=== PATIENT | female | born 1945 | race Caucasian/White ===

== ENCOUNTER 2016-12-15 12:38 | Inpatient (IN) | payer OTHER ==
[2016-12-15] MEDS ORDERED: NS 1,000 ML IV ONE (12:46)
[2016-12-15 13:07] LABS: MANUAL DIFF NEEDED? NO
[2016-12-15 13:24] LABS: BASO% 0.2 % (0.0-0.8); EOS# 0.03 X1000 (0.0-0.7); EOS% 0.2 % (0.0-10.0); HEMATOCRIT 40.8 % (37.0-47.0); HEMOGLOBIN 13.4 g/dL (12.0-16.0); IMM GRAN# 0.02 X1000 (0.0-0.04); IMM GRAN% 0.2 % (0.0-0.5); LYMPH# 1.36 X1000 (1.2-3.4); LYMPH% 10.3 % (20.5-51.1); MCH 29.3 PG (27-31); MCHC 32.8 g/dL (33-37); MCV 89.1 FL (81-99); MONO% 10.6 % (1.7-9.3); MPV 10.6 FL (7.4-10.4); NEUT% 78.5 % (42.2-75.2); PLT 277 X1000 (130-400); RBC 4.58 XMIL (4.2-5.4)
--- NOTE | 2016-12-15 13:33 | PROVIDER DOCUMENTATION ---
[id number] Abuse/Overdose - General Source: EMS Unable to obtain history due to:: urgency - History of Present Illness-Drug/Alcohol This episode of drinking or use began:: just prior to arrival Psychiatric Complaints: reports: ingestion Associated Symptoms: reports: vomiting Any injuries associated with this episode of intoxication?: No Similar Symptoms Previously?: No Recently seen or treated by another doctor?: No <Shantal Marlow - Last Filed: 12/15/16 16:17> <Morteza Stoddard I - Last Filed: 12/15/16 16:36> - General Chief Complaint: Overdose Stated Complaint: overdose Time Seen by Provider: 12/15/16 12:45 Allergies/Adverse Reactions: Allergies Allergy/AdvReac Type Severity Reaction Status Date / Time No Known Allergies Allergy Verified 02/04/16 08:16 Home Medications: Home Medication List Medication Instructions Recorded Confirmed Last Taken Type Hydrocodone/Acetaminophen 1 each PO TID PRN #0 09/04/13 02/04/16 02/02/16 08: 00 Rx [Hydrocodon-Acetaminophn 10-325] Oxybutynin Chloride [Oxybutynin 15 mg PO DAILY 02/14/14 02/04/16 02/02/16 08:00 History Chloride ER] Diltiazem HCl [Cardizem Cd] 360 mg PO DAILY 02/04/16 02/04/16 02/02/16 08:00 History Aspirin 81 mg PO DAILY #0 chewtab 02/06/16 Unknown Rx Gabapentin [Neurontin] 600 mg PO TID #0 tablet 02/06/16 Unknown Rx LOVAstatin [Mevacor] 20 mg PO WSUPPER #0 tablet 02/06/16 Unknown Rx Levofloxacin 750 mg PO DAILY #3 tablet 02/06/16 Unknown Rx Levothyroxine [Synthroid] 50 microgm PO DAILY #0 tablet 02/06/16 Unknown Rx Lorazepam [Ativan] 0.5 mg PO TID PRN PRN #0 tablet 02/06/16 Unknown Rx Losartan [Cozaar] 100 mg PO DAILY #0 tablet 02/06/16 Unknown Rx Omeprazole [Prilosec] 40 mg PO DAILY@0700 #0 capsule 02/06/16 Unknown Rx - History of Present Illness-Drug/Alcohol Nature of Presenting Problem: Pt is a 71 yof who came to the ED via EMS with a cc of possible overdose. Pt was found vomiting on her self and would respond to sternal rub. Pt has a hx of over dosing on her medication by accident. (Shantal Marlow) Review of Systems - Adult - REVIEW OF SYSTEMS - ADULT Constitutional: reports: chills, fever. denies: fatique, weight gain Eyes: reports: no symptoms reported Ears, Nose, Mouth & Throat: reports: no symptoms reported Cardiovascular: denies: heart murmur, orthopnea Respiratory: reports: no symptoms reported Gastrointestinal: reports: no symptoms reported Genitourinary: reports: no symptoms reported Musculoskeletal: reports: no symptoms reported Integumentary: reports: no symptoms reported Neurological: reports: no symptoms reported Psychiatric: reports: alcohol/drug dependence. denies: emotional problems, panic attacks Endocrine: reports: no symptoms reported Hematologic/Lymphatic: reports: no symptoms reported Allergic/Immunologic: reports: no symptoms reported All Other Systems: Reviewed and Negative <Shantal Marlow - Last Filed: 12/15/16 16:17> Past History - Adult - PAST MEDICAL HISTORY-ADULT Review of Records: reports: Old Records Reviewed, Nursing Assessment Review Major Childhood Illnesses: reports: denies history Cardiovascular: reports: HTN Respiratory: reports: denies history Gastrointestinal: reports: denies history Obstetrical/Gynecological: reports: denies history Genitourinary: reports: denies history Musculoskeletal: reports: denies history Neurological: reports: denies history Endocrine/Immune: reports: thyroid disorder (hypothyroid) Other Conditions: reports: denies history - PRIOR SURGERIES/PROCEDURES Surgical/Procedure History: reports: hysterectomy, back/neck - IMMUNIZATION STATUS Childhood Immunizations: See Nurse Assessment Flu Vaccine: See Nurse Assessment - FAMILY HISTORY Family History: reviewed, not pertinent <Shantal Marlow - Last Filed: 12/15/16 16:17> Physical Exam-General - PHYSICAL EXAM-ADULT Initial Vital Signs Reviewed: Yes - CONSTITUTIONAL General Appearance: lethargic - EYES Eyes: PERRL/EOMI, pink conjunctivae, fundi clear, no AV nicking - HEAD, EARS, NOSE, MOUTH & THROAT HENMT: moist mucous membranes, normal ENT inspection, TMs normal - RESPIRATORY Respiratory: chest non-tender - CARDIOVASCULAR Cardiovascular: tachycardia - SKIN Integumentary: warm/dry - PSYCHIATRIC Psych/Mental Status: disoriented x 3 <Shantal Marlow - Last Filed: 12/15/16 16:17> Progress - EKG 1 Time of EKG reading by physician:: 12:40 EKG Read and Signed by:: Morteza Stoddard EKG Interpretation (*Must complete 3 of following elements*): Abnormal Rate: 139 (nonspecific ST and T wave abnormality ) Rhythm: atrial fibrillation with rapid ventricular response - XRAY 1 XRAY Study: Chest (pulm edema) - CT/MRI 1 CT Study: Head (NAD, chronic white matter changes) <Shantal Marlow - Last Filed: 12/15/16 16:17> <Morteza Stoddard I - Last Filed: 12/15/16 16:36> - PLAN OF CARE/RESULTS Progress/Plan/Lab Results: Orders Category Date Time Status Cardiac Monitoring DIRECTED Care 12/15/16 12:45 Active Finger Stick Blood Sugar (ED) DIRECTED Care 12/15/16 12:45 Active Saline Loc DIRECTED Care 12/15/16 12:45 Active HEAD W/O CONTRAST [CT] Stat Exams 12/15/16 12:46 Ordered ACETAMINOPHEN [TDM] Stat Lab 12/15/16 12:50 Received ALCOHOL BLOOD Stat Lab 12/15/16 12:50 Received CBC WITH ELECTRONIC DIFF [HEME] Stat Lab 12/15/16 12:50 Completed COMPREHENSIVE METABOLIC PANEL [CHEM] Stat Lab 12/15/16 12:50 Received SALICYLATES [TDM] Stat Lab 12/15/16 12:50 Received URINE DRUG SCREEN PL Stat Lab 12/15/16 12:45 Uncollected 0.9% Sodium Chloride Inj [Ns] 1,000 ml Med 12/15/16 12:46 Active IV 999 mls/hr Pulse Oximetry Stat Oth 12/15/16 12:45 Completed EKG [EKG] Stat Ther 12/15/16 12:38 Ordered EKG [EKG] Stat Ther 12/15/16 12:45 Ordered Laboratory Tests 12/15/16 12:50 WBC 13.17 H RBC 4.58 Hgb 13.4 Hct 40.8 MCV 89.1 MCH 29.3 MCHC 32.8 L RDW Std Deviation 13.5 Plt Count 277 MPV 10.6 H Immature Gran % (Auto) 0.2 Neut % (Auto) 78.5 H Lymph % (Auto) 10.3 L [place] % (Auto) 10.6 H Eos % (Auto) 0.2 Baso % (Auto) 0.2 Immature Gran # (Auto) 0.02 Neut # (Auto) 10.34 H Lymph # (Auto) 1.36 [place] # (Auto) 1.40 H Eos # (Auto) 0.03 Baso # (Auto) 0.02 (Shantal Marlow) 1630: CASE DISCUSSED WITH DR. LIBRADO SMITH (COVERING FOR DR. MARSHALL). C. DIFF AND TOXIN ORDERED, WELL SEPTIC WORKUP. AFIB CONTROLLED WITH IV CARDIZEM, AND PATIENT ON IV VANCOMYCIN AND ZOSYN. AWAITING TRANSFER TO THE ICU. PATIENT IS HEMODYNAMICALLY STABLE. (Morteza Stoddard I) Departure - Departure Time of Disposition Order: 15:38 Certified Medical Emergency: Emergent <Shantal Marlow - Last Filed: 12/15/16 16:17> - Departure Time of Disposition Order: 16:25 Certified Medical Emergency: Emergent <Morteza Stoddard I - Last Filed: 12/15/16 16:36> - Departure DIAGNOSIS: Altered mental status, C. difficile colitis Pneumonia Qualifiers: Pneumonia type: due to unspecified organism Laterality: unspecified laterality Lung location: unspecified part of lung Qualified Code(s): J18.9 - Pneumonia, unspecified organism Sepsis Qualifiers: Sepsis type: sepsis due to unspecified organism Qualified Code(s): A41.9 - Sepsis, unspecified organism Disposition: ADMITTED INPATIENT 09 Condition: Stable Additional Instructions: ADMIT TO ICU PER DR. LIBRADO SMITH Referrals: Ruchi Gonzalez MD [Primary Care Provider] - Attestation - Scribe Verification/Attestation Scribe:: Shantal Marlow Acting as Scribe for:: Morteza Stoddard Scribe documention review:: This chart was documented by a scribe and accurately reflects the service the provider performed and the decisions made by the provider. <Shantal Marlow - Last Filed: 12/15/16 16:17> Physician Attestation
[2016-12-15 13:42] LABS: ACETAMINOPHEN < 1.2 ug/mL (10-30); AGAP 11; ALBUMIN 3.3 g/dL (3.5-5.0); ALKALINE PHOSPHATASE 117 U/L (32-104); BUN 14 mg/dL (8-22); CHLORIDE 101 mmol/L (98-107); COSMO 278; GOT 17 U/L (10-30); GPT 9 U/L (10-36); POTASSIUM 3.7 mmol/L (3.5-5.1); SODIUM 139 mmol/L (136-145); TCO2 27 mmol/L (25-35); TOTAL BILIRUBIN 0.61 mg/dL (0.20-1.00)
[2016-12-15 13:59] LABS: ALLEN TEST YES; BE 1.1 mmoll (-3.0-3.0); BLOOD TYPE ARTERIAL; DRAW SITE R RADIAL; METHB 1.4 % (0.0-1.5); O2(CT) 16.4 mL/dL (15.0-23.0); PCO2(98.6) 37 mmHg (35-45); PO2(98.6) 111 mmHg (60-100); SAMPLE BLOOD; THB 12.1 g/dL (11.5-17.4); pH(98.6) 7.44 (7.35-7.45)
[2016-12-15 14:00] LABS: MODALITY CANNULA
[2016-12-15 14:04] LABS: URINE CULTURE NEEDED? NO; URINE MICRO REVIEW NEEDED? NO; URINE SOURCE CATH
[2016-12-15 14:13] LABS: BILIRUBIN URINE NEGATIVE (NEGATIVE); BLOOD URINE NEGATIVE (NEGATIVE); COLOR YELLOW; GLUCOSE URINE NEGATIVE (NEGATIVE); LEUKOCYTES URINE NEGATIVE (NEGATIVE); NITRITE URINE NEGATIVE (NEGATIVE); PH URINE 6.5; PROTEIN URINE NEGATIVE (NEGATIVE); SP GRAVITY URINE 1.011; TURBIDITY URINE CLEAR (CLEAR); UROBILINOGEN URINE NORMAL (NORMAL)
[2016-12-15 14:15] LABS: UR EPITHELIAL CELLS <10 /HPF (<10); URINE BACTERIA NEGATIVE /HPF; URINE RBC <10 /HPF (<10); URINE WBC <10 /HPF (<10)
[2016-12-15] MEDS ORDERED: NARCAN IV ONE (14:21)
[2016-12-15 14:24] LABS: UR AMPHETAMINES QUAL NONE DETECTED (NONE DETECT); UR BARBITUATES QUAL NONE DETECTED (NONE DETECT); UR BENZODIAZEPIN QUAL NONE DETECTED (NONE DETECT); UR CANNABINOIDS QUAL NONE DETECTED (NONE DETECT); UR COCAINE QUAL NONE DETECTED (NONE DETECT); UR METHADONE QUAL NONE DETECTED (NONE DETECT); UR OPIATES QUAL PRESUMPTIVE POSITIVE (NONE DETECT); UR OXYCODONE QUAL NONE DETECTED (NONE DETECT); UR PCP QUAL NONE DETECTED (NONE DETECT)
[2016-12-15 14:39] LABS: MAGNESIUM 1.9 mg/dL (1.5-2.7)
[2016-12-15 14:40] LABS: INR 1.04; PTT 24.2 Seconds (22.0-36.0)
--- NOTE | 2016-12-15 15:11 | Diag Imaging Result Document ---
PROCEDURE NAME: CHEST-PORTABLE - 12/15/2016 AP PORTABLE CHEST AT 1435 HOURS: FINDINGS: There is interstitial pulmonary edema throughout both lungs, which was not present on 02/04/2016. IMPRESSION: Pulmonary edema.
[2016-12-15] MEDS ORDERED: LEVAQUIN 500 MG/D5W 100 ML IV ONE (15:37)
[2016-12-15] MEDS ORDERED: CARDIZEM IV ONE (16:23)
--- NOTE | 2016-12-15 16:33 | Diag Imaging Result Document ---
PROCEDURE NAME: HEAD W/O CONTRAST - 12/15/2016 CT OF THE HEAD WITHOUT CONTRAST: FINDINGS: There are some patchy lucencies in the periventricular white matter of both hemispheres. There are calcifications in the right basal ganglia and the internal carotid arteries. There is no evidence of bleed or abnormal extraaxial fluid collection. Compared to 02/04/2016, there has been no significant change. IMPRESSION: Chronic microvascular changes. No evidence of acute disease.
[2016-12-15] MEDS ORDERED: SODIUM CHLORIDE 0.9% 20 ML ONE (16:45)
[2016-12-15] MEDS ORDERED: PHENERGAN ONE (16:45)
[2016-12-15] MEDS ORDERED: STERILE WATER INJ. INJ PRN (17:36)
[2016-12-15] MEDS ORDERED: GEODON IM PRN (17:36)
[2016-12-15] MEDS ORDERED: PHENERGAN IV PRN (17:42)
[2016-12-15] MEDS ORDERED: SODIUM CHLORIDE 0.9% INJ PRN (17:42)
[2016-12-15] MEDS ORDERED: ZOFRAN IV PRN (17:42)
[2016-12-15] MEDS ORDERED: VANCOMYCIN IV PER PHARMACY MISC SCH (17:45)
[2016-12-15] MEDS: ZOSYN 3.375 GM/NS 50 ML IV SCH ×2 (17:51→22:40)
[2016-12-15] MEDS ORDERED: OFIRMEV 1000 MG/ISOTONIC SOLN 100 ML ONE (17:52)
[2016-12-15] MEDS: OFIRMEV 1000 MG/ISOTONIC SOLN 100 ML IV SCH (18:05)
[2016-12-15] MEDS: CARDIZEM 100 MG/NS 100 ML IV SCH ×3 (18:24→20:45)
[2016-12-15] MEDS: MORPHINE IV PRN (18:46)
[2016-12-15] MEDS ORDERED: ATIVAN IV ONE (19:23)
[2016-12-15] MEDS ORDERED: ATIVAN ONE (19:25)
[2016-12-15] MEDS ORDERED: VANCOMYCIN 1,500 MG in NS 250 ML IV ONE (20:00)
[2016-12-15] MEDS: LOPRESSOR IV SCH (20:10)
[2016-12-15] MEDS: HALDOL IV PRN (20:10)
[2016-12-15 21:10] LABS: ALLEN TEST YES; BE -1.1 mmoll (-3.0-3.0); BLOOD TYPE ARTERIAL; DRAW SITE R RADIAL; METHB 1.3 % (0.0-1.5); O2(CT) 17.1 mL/dL (15.0-23.0); PCO2(98.6) 31 mmHg (35-45); PO2(98.6) 252 mmHg (60-100); SAMPLE BLOOD; SAO2 99.8 % (95.0-100.0); THB 12.1 g/dL (11.5-17.4); pH(98.6) 7.46 (7.35-7.45)
[2016-12-15 21:11] LABS: MODALITY NRB
--- NOTE | 2016-12-15 21:15 | HISTORY AND PHYSICAL ---
PRIMARY CARE PHYSICIAN: Ruchi Gonzalez MD CHIEF COMPLAINT: Unresponsive. Fevers. HISTORY OF PRESENT ILLNESS: Ms. Marshall is a 71-year-old white female, that presented to the emergency room today after being found down by . 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 Upon returning, he came, she was in her room with unresponsive state stating that she was also warm to the touch. The patient was transferred immediately to the emergency room, found to be febrile with chest x-rays consistent with right lower lobe pneumonia. Due to history of opioid overuse, Narcan was provided with a good effect status post. Patient has had high-volume diarrhea with smells consistent of C. difficile colitis. The patient does have a history of C. difficile colitis. PAST MEDICAL HISTORY: 1. Recurrent pneumonia. 2. C. difficile colitis. 3. Hypertension. 4. Dyslipidemia. 5. Hypothyroidism. 6. OAB. 7. Osteoporosis. 8. Anxiety disorder. 9. Depression. 10. Fibromyalgia. PAST SURGICAL HISTORY: 1. Cholecystectomy. 2. Partial hysterectomy. 3. Nonspecific neck surgery. FAMILY HISTORY: Multiple family members with hypertension, arthritis. Otherwise, noncontributory. SOCIAL HISTORY: The patient is a prior smoker of greater than 150 pack years. States that she does not use alcohol or recreational drugs, but multiple family members display drug-seeking behaviors and patient does have a chronic use of both Ativan and opioids at baseline. ALLERGIES: No known drug allergies. MEDICATIONS: Patient is currently on aspirin 81 mg p.o. daily, levothyroxine 50 mcg once daily, omeprazole 40 mg once daily, gabapentin 600 mg t.i.d. ,lovastatin 20 mg p.o. at bedtime, losartan 100 mg p.o. daily, diltiazem 360 once a day, oxybutynin ER 15 mg once daily, lorazepam 0.5 mg t.i.d., hydrocodone/acetaminophen 10/325 mg orally t.i.d. arthritis. REVIEW OF SYSTEMS: Twelve point review of systems pertinent for items mentioned in the HPI. Patient is unable to describe symptoms, but is demonstrating intractable nausea, vomiting, irritable status and waxing and waning mentation. LABORATORY: Patient's current labs show WBC of 13.17 with an hemoglobin and hematocrit of 13 and 40 respectively, platelet count of 277,000, with neutrophils 78, INR 1.04, blood gas showing a pH of 7.44 with a PO2 of 111, lactate of 0.70, sodium of 139, with a chloride of 27, creatinine 1, AST, ALT within normal limits. CK of 33, troponin less than 1, total protein 6, salicylates less than 3. Presumptive positive urine opiate screen and acetaminophen less than 1.2. Ethyl alcohol was noted to be 0. Blood cultures, urine cultures and C. difficile are pending at this time. IMAGING: Head CT showed microvascular changes. No evidence of acute disease. Chest x-ray showed pulmonary edema throughout the lungs not present bilaterally. ASSESSMENT/PLAN: A 70-year-old, female with: 1. Intractable nausea, vomiting, diarrhea with fever likely secondary to acute infectious gastroenteritis, but considerations being made for recurrent Clostridium difficile colitis. 2. Pneumonia with leukocytosis. We will treat with appropriate antibiotics, intravenous fluids. 3. Altered mental status. Patient requiring Geodon IM. We will continue to follow and have p.r.n. medications made available. The patient will be admitted to the to the intensive care unit for sepsis protocol. Start on intravenous fluids and maintain sedation as possible to further evaluate her condition. The patient be placed on vancomycin and Zosyn while we monitor the cultures to tailor the therapy. Patient will also get deep venous thrombosis prophylaxis with 40 enoxaparin subcutaneous q.24 hours. We will follow with a chest x-ray, repeat in the a.m. to evaluate function. We will give her Zofran and Phenergan for the nausea and vomiting along with Lomotil 1 tablet t.i.d. for diarrhea and have evaluations recurrently per primary care physician Dr. Gonzalez.
[2016-12-15] MEDS: ATIVAN IV PRN (21:45)
[2016-12-16 05:07] LABS: ALLEN TEST YES; BE -0.5 mmoll (-3.0-3.0); BLOOD TYPE ARTERIAL; DRAW SITE R RADIAL; O2(CT) 16.1 mL/dL (15.0-23.0); PCO2(98.6) 33 mmHg (35-45); PO2(98.6) 77 mmHg (60-100); SAMPLE BLOOD; SAO2 98.1 % (95.0-100.0); pH(98.6) 7.45 (7.35-7.45)
[2016-12-16 05:08] LABS: MODALITY CANNULA
[2016-12-16] MEDS: OFIRMEV 1000 MG/ISOTONIC SOLN 100 ML IV SCH ×5 (05:15→23:04)
[2016-12-16 06:04] LABS: MANUAL DIFF NEEDED? NO
[2016-12-16] MEDS: CARDIZEM 100 MG/NS 100 ML IV SCH ×3 (06:07→16:19)
[2016-12-16 06:27] LABS: BASO% 0.2 % (0.0-0.8); EOS# 0.01 X1000 (0.0-0.7); EOS% 0.1 % (0.0-10.0); HEMATOCRIT 38.6 % (37.0-47.0); HEMOGLOBIN 12.6 g/dL (12.0-16.0); IMM GRAN# 0.04 X1000 (0.0-0.04); IMM GRAN% 0.2 % (0.0-0.5); LYMPH# 1.67 X1000 (1.2-3.4); LYMPH% 9.5 % (20.5-51.1); MCH 28.8 PG (27-31); MCHC 32.6 g/dL (33-37); MCV 88.3 FL (81-99); MONO# 1.67 X1000 (0.11-0.59); MONO% 9.5 % (1.7-9.3); MPV 11.1 FL (7.4-10.4); NEUT% 80.5 % (42.2-75.2); PLT 285 X1000 (130-400); RBC 4.37 XMIL (4.2-5.4)
[2016-12-16] MEDS: ZOSYN 3.375 GM/NS 50 ML IV SCH ×4 (06:41→22:15)
[2016-12-16 06:51] LABS: AGAP 16; ALBUMIN 2.8 g/dL (3.5-5.0); ALKALINE PHOSPHATASE 116 U/L (32-104); BUN 15 mg/dL (8-22); CALCIUM 8.4 mg/dL (8.8-10.2); CHLORIDE 102 mmol/L (98-107); COSMO 275; GOT 37 U/L (10-30); GPT 18 U/L (10-36); MAGNESIUM 1.9 mg/dL (1.5-2.7); POTASSIUM 3.5 mmol/L (3.5-5.1); SODIUM 137 mmol/L (136-145); TCO2 19 mmol/L (25-35); TOTAL BILIRUBIN 0.72 mg/dL (0.20-1.00); TOTAL PROTEIN 5.6 g/dL (6.3-8.3)
--- NOTE | 2016-12-16 07:36 | EKG Report ---
Test Performed on : 12/15/2016 12:40:48 PM Test Reason : ams Blood Pressure : / mmHG Vent. Rate : 139 BPM Atrial Rate : 150 BPM P-R Int : 000 ms QRS Dur : 088 ms QT Int : 312 ms P-R-T Axes : 000 028 190 degrees QTc Int : 474 ms Atrial fibrillation. with rapid ventricular response. Nonspecific ST and T wave abnormality Abnormal ECG When compared with ECG of 04-FEB-2016 07:47, Atrial fibrillation. has replaced Sinus rhythm. Vent. rate has increased BY 54 BPM Nonspecific T wave abnormality, worse in Inferior leads Unconfirmed Result
--- NOTE | 2016-12-16 08:52 | Diag Imaging Result Document ---
PROCEDURE NAME: CHEST-PORTABLE - 12/16/2016 PORTABLE CHEST X-RAY, 12/16/2016: COMPARISON: 12/15/2016. FINDINGS: There is increasing infiltrate or atelectasis throughout the left lung. Lung volumes are somewhat lower. Stable cardiomegaly and pulmonary vascular congestion. Stable fine interstitial infiltrates bilaterally suggesting interstitial pulmonary edema. IMPRESSION: Lower lung volumes. Apparent worsening infiltrate or atelectasis throughout the left lung.
[2016-12-16] MEDS: LOPRESSOR IV SCH ×2 (09:44→19:22)
--- NOTE | 2016-12-16 17:24 | Diag Imaging Result Document ---
PROCEDURE NAME: US ABDOMEN-COMPLETE - 12/16/2016 ABDOMINAL ULTRASOUND: FINDINGS: Normal pancreas. No aneurysmal dilatation to the abdominal aorta. Normal inferior vena cava. No focal hepatic abnormality. The gallbladder is not present. The common bile duct measures 5 mm. The right kidney is atrophic and hyperechoic with cortical thinning. It measures only 6.3 cm in length. The spleen is not enlarged. No ascites. The left kidney is normal. Normal echotexture and cortical thickness. It measures 10.4 cm in length. IMPRESSION: 1. Cholecystectomy. 2. Atrophic right kidney.
[2016-12-16] MEDS: VANCOMYCIN 1 GM/NS 250 ML IV SCH (19:23)
[2016-12-16] MEDS: MORPHINE IV PRN (21:05)
[2016-12-16] MEDS: ATIVAN IV PRN (23:06)
[2016-12-17] MEDS: CARDIZEM 100 MG/NS 100 ML IV SCH ×3 (02:49→22:56)
[2016-12-17] MEDS: ZOSYN 3.375 GM/NS 50 ML IV SCH ×4 (04:28→22:56)
[2016-12-17] MEDS: OFIRMEV 1000 MG/ISOTONIC SOLN 100 ML IV SCH (05:29)
[2016-12-17 05:38] LABS: MANUAL DIFF NEEDED? NO
[2016-12-17 05:42] LABS: BASO% 0.3 % (0.0-0.8); EOS# 0.12 X1000 (0.0-0.7); EOS% 0.8 % (0.0-10.0); HEMATOCRIT 43.2 % (37.0-47.0); HEMOGLOBIN 13.9 g/dL (12.0-16.0); IMM GRAN# 0.03 X1000 (0.0-0.04); IMM GRAN% 0.2 % (0.0-0.5); LYMPH# 1.68 X1000 (1.2-3.4); LYMPH% 11.2 % (20.5-51.1); MCH 28.7 PG (27-31); MCHC 32.2 g/dL (33-37); MCV 89.3 FL (81-99); MONO# 1.16 X1000 (0.11-0.59); MONO% 7.7 % (1.7-9.3); NEUT% 79.8 % (42.2-75.2); PLT 305 X1000 (130-400); RBC 4.84 XMIL (4.2-5.4)
[2016-12-17 05:56] LABS: CALCIUM 8.8 mg/dL (8.8-10.2); POTASSIUM 3.1 mmol/L (3.5-5.1); TOTAL BILIRUBIN 0.41 mg/dL (0.20-1.00); TOTAL PROTEIN 6.4 g/dL (6.3-8.3)
[2016-12-17] MEDS ORDERED: KLOR-CON PO ONE (06:53)
[2016-12-17] MEDS ORDERED: LOPRESSOR PO ONE (07:15)
[2016-12-17] MEDS: ATIVAN IV PRN ×2 (09:07→19:41)
--- NOTE | 2016-12-17 10:01 | CONSULTATION ---
DATE OF CONSULTATION: 12/17/2016 INDICATION: Paroxysmal atrial fibrillation. HISTORY OF PRESENT ILLNESS: Ms. Marshall is a 71-year-old, white female with a history of paroxysmal atrial fibrillation who was admitted to the hospital on the . She normally follows with Dr. Gonzalez. Apparently, Friday, she was at her home sitting on a couch and experienced a significant amount of weakness. There was no overt episode of syncope and no chest pain. No palpitations. The patient is a relatively poor historian regarding the event but apparently was not able to get up off the couch and the eventually called EMS. Sometime in that time period, the patient was administered Narcan. Prior to the episode of Narcan administration, she had some issues with nausea but no diarrhea. Apparently, since the episode of Narcan, she has had a prodigious amount of diarrhea. She has had no preceding antibiotic usage. She was evaluated in the ER and chest x- rays were consistent with a right lower lobe pneumonia, possible aspiration. She developed paroxysmal atrial fibrillation during the hospitalization here which, on multiple hospitalizations in the past, she has had issues with atrial fibrillation. She has not previously been on anticoagulants though for an unknown reason. She has no history of falls. No balance issues. No bleeding issues that she is aware of. PAST MEDICAL HISTORY: 1. Significant for pneumonia. 2. History of C. difficile. 3. Hypertension. 4. Hyperlipidemia. 5. Hypothyroidism. 6. Osteoporosis. 7. Depression. 8. Fibromyalgia. 9. Chronic pain with chronic home narcotics usage. SOCIAL HISTORY: Prior smoker, does not currently use. Does not use alcohol. FAMILY HISTORY: Significant for hypertension and arthritis. REVIEW OF SYSTEMS: A 10 system review of systems is negative except for those things mentioned in the HPI. PHYSICAL EXAMINATION: Vital Signs: During this hospitalization, she was febrile up as high as 101.8 on the at 6 p.m. Presently, during my examination, her heart rate was in the 80s to 90s. Blood pressure 153/91. Generally: She is in no acute distress. She is pleasant. HEENT: Oropharynx is moist. Normal dentition. Eye examination shows pink conjunctivae and white sclerae. Neck: Examination shows no obvious thyromegaly or thyroid tenderness. Cardiovascular: She is in a irregularly irregular rhythm. She has no obvious murmurs. She has no S3 present. She has no lower extremity edema. She has no carotid bruits. Chest: Examination is clear bilaterally. She has poor inspiratory effort. Abdomen: Soft, nontender, nondistended. She has no obvious organomegaly. Skin Examination: Warm and dry throughout without any rashes. Neurological: She is moving all extremities well. Cranial nerves 2-12 are intact without any sensation deficits. Psychiatric: She attempts to answer all questions. She is a little slow in answering the questions but seems appropriate. She is not able to elaborate a great deal. PERTINENT DATA: Her chest x-ray shows low lung volumes with worsening infiltrate or atelectasis throughout the left lung. Her EKG on presentation at 12:40 seems to demonstrate a presumed atrial fibrillation, rate of 139 beats per minute, nonspecific ST-T changes. No evidence of previous infarct. She has no data in lead 3. CT scan of the head shows chronic microvascular changes. No evidence of acute findings. Laboratory data shows a white count of 15, her hematocrit is 43.2, platelet count is 305,000. She has a left shift with 79% neutrophils. Sodium is 143, potassium is 3.1. This has already been repleted. BUN 16, creatinine is 1. AST 28, ALT 21. Her albumin is 3. She has no TSH checked currently. Her UDS was positive for opiates. ASSESSMENT: 1. Paroxysmal atrial fibrillation in a patient with a history of multiple episodes previously. 2. Febrile illness, presumed to be pneumonia. 3. Diarrhea. PLAN: Presumably, her diarrhea may be secondary to Narcan administration. Apparently, per the nurse, her initial C. difficile was negative. She is continuing on antibiotics. I would continue her on the diltiazem infusion which is to be titrated for a heart rate less than 100. I have increased the metoprolol to 50 t.i.d. We will add in a TSH to be checked today off the already drawn blood. I will order an echocardiogram to be done as well. She would seem like an appropriate candidate for anticoagulation long-term. We will consider starting that later in the hospitalization. She is not having any falls and her CHADS-VASc score is at least 3 for female, sex, age, and hypertension. Presently, we will try to achieve rate control with oral metoprolol while weaning off the diltiazem infusion.
[2016-12-17] MEDS: LOPRESSOR PO SCH ×2 (12:34→16:12)
--- NOTE | 2016-12-17 18:03 | ECHO REPORT ---
ORDER DATE: 12/17/2016 INTERPRETING PHYSICIAN: Dr. Johnson CLINICAL INDICATIONS: [id number]-old female with atrial fibrillation, hypertension, pneumonia. M-MODE MEASUREMENTS: Right ventricle: 2.7 cm. Left ventricle end diastole: 4.1 cm. Left ventricle end systole: 3.0 cm. Posterior wall: 1.0 cm. Interventricular septum: 1.0 cm. Left atrium: 4.1 cm. Aortic root: 2.7 cm. SUMMARY OF 2-DIMENSIONAL IMAGING: The left ventricular function in general appears to be preserved. Ejection fraction is estimated at 59%. The patient is in atrial fibrillation with rapid response. There is hypokinesis of the basal to mid inferior wall of the left ventricle consistent with coronary heart disease. The right ventricle is not dilated. There is a small circumferential pericardial effusion. There is no tamponade. The left atrium appears to be moderately enlarged. Aortic valve shows mild degree of sclerosis of the cusps with normal opening. Pulmonic valve shows mild degree of regurgitation. The tricuspid valve shows mild to moderate degree of regurgitation. Inferior vena cava appears to be at the upper limits of normal. Pulmonary pressure estimated at 43 mmHg. Mitral valve looks normal. Color flow mapping indicates mild degree of regurgitation. The diastolic function cannot be adequately assessed in this patient because patient is in rapid atrial fibrillation. There is no evidence of masses or thrombus. Clinical correlation is recommended.
[2016-12-17] MEDS: MORPHINE IV PRN ×2 (18:38→21:08)
[2016-12-17] MEDS: VANCOMYCIN 1 GM/NS 250 ML IV SCH (19:36)
[2016-12-17] MEDS ORDERED: LOPRESSOR PO SCH (21:00)
[2016-12-18] MEDS: ZOSYN 3.375 GM/NS 50 ML IV SCH ×4 (03:59→23:54)
[2016-12-18] MEDS: ATIVAN IV PRN ×2 (07:51→17:43)
[2016-12-18] MEDS: LOPRESSOR PO SCH ×3 (08:19→18:08)
[2016-12-18 09:16] LABS: MANUAL DIFF NEEDED? NO
[2016-12-18 09:22] LABS: BASO% 0.4 % (0.0-0.8); HEMATOCRIT 36.4 % (37.0-47.0); HEMOGLOBIN 11.6 g/dL (12.0-16.0); IMM GRAN# 0.02 X1000 (0.0-0.04); IMM GRAN% 0.2 % (0.0-0.5); LYMPH# 1.56 X1000 (1.2-3.4); LYMPH% 15.6 % (20.5-51.1); MCH 28.6 PG (27-31); MCHC 31.9 g/dL (33-37); MCV 89.7 FL (81-99); MONO# 0.96 X1000 (0.11-0.59); MONO% 9.6 % (1.7-9.3); MPV 10.4 FL (7.4-10.4); NEUT% 72.2 % (42.2-75.2); PLT 337 X1000 (130-400); RBC 4.06 XMIL (4.2-5.4)
[2016-12-18] MEDS: MORPHINE IV PRN ×3 (09:33→22:03)
[2016-12-18 09:56] LABS: AGAP 17; BUN 15 mg/dL (8-22); CALCIUM 7.9 mg/dL (8.8-10.2); CHLORIDE 102 mmol/L (98-107); COSMO 272; POTASSIUM 3.1 mmol/L (3.5-5.1); SODIUM 136 mmol/L (136-145); TCO2 17 mmol/L (25-35)
--- NOTE | 2016-12-18 14:50 | PROGRESS NOTE ---
DATE: 12/18/2016 SUBJECTIVE: Ms Marshall reports no complaints, no chest pain, no palpitations. She is tolerating oral intake. PHYSICAL EXAMINATION: She is afebrile presently. Heart rate of 90, blood pressure 160/85. She is currently off the Cardizem drip. She continues to be in atrial fib. Generally no acute distress. Cardiovascular: She is in an irregularly irregular rhythm. No obvious murmurs. She has no S3. She has no lower extremity edema. Chest: Clear bilaterally. No increased work of breathing. Abdomen: Soft, nontender, nondistended. No obvious organomegaly. Skin Exam: Warm and dry throughout. PERTINENT DATA: White count 9.9, hematocrit 36.4, platelet count 337,000. Her chemistry shows a sodium 136, potassium 3.1, BUN 15, creatinine 0.8. ASSESSMENT: Atrial fibrillation. PLAN: I will increase her metoprolol to 50 q.6. She had potassium repletion performed yesterday by Dr. Gonzalez. I will order another 40 mEq today to be administered given that her potassium this morning was 3.1. I will do 40 mEq p.o. x2 doses.
[2016-12-18] MEDS: KLOR-CON PO SCH ×2 (15:24→21:15)
[2016-12-18] MEDS: CATAPRES PO PRN (16:36)
[2016-12-19] MEDS: LOPRESSOR PO SCH ×4 (01:29→23:38)
[2016-12-19] MEDS: MORPHINE IV PRN ×3 (01:47→22:27)
[2016-12-19] MEDS: ATIVAN IV PRN (01:53)
[2016-12-19] MEDS: HALDOL IV PRN ×2 (04:23→12:27)
[2016-12-19] MEDS: ZOSYN 3.375 GM/NS 50 ML IV SCH ×4 (05:22→22:26)
[2016-12-19 05:26] LABS: MANUAL DIFF NEEDED? NO
[2016-12-19 05:42] LABS: BASO% 0.5 % (0.0-0.8); EOS% 3.2 % (0.0-10.0); HEMATOCRIT 38.1 % (37.0-47.0); HEMOGLOBIN 12.2 g/dL (12.0-16.0); LYMPH# 1.39 X1000 (1.2-3.4); LYMPH% 22.3 % (20.5-51.1); MCH 28.5 PG (27-31); MONO# 0.75 X1000 (0.11-0.59); MPV 10.2 FL (7.4-10.4); PLT 284 X1000 (130-400); RBC 4.28 XMIL (4.2-5.4)
[2016-12-19 06:30] LABS: AGAP 17; BUN 11 mg/dL (8-22); CALCIUM 8.4 mg/dL (8.8-10.2); CHLORIDE 106 mmol/L (98-107); COSMO 282; POTASSIUM 3.7 mmol/L (3.5-5.1); SODIUM 142 mmol/L (136-145); TCO2 19 mmol/L (25-35)
--- NOTE | 2016-12-19 11:42 | PROGRESS NOTE ---
DATE: 12/19/2016 SUBJECTIVE: Ms. Marshall had a somewhat rough night last night. She apparently became quite agitated and confused. This may have been secondary to some medications. I believe she was given Ativan, morphine, as well as Haldol. She is quite somnolent this morning. PHYSICAL EXAMINATION: Vital Signs: She is afebrile. Her heart rate is 81, blood pressure 162/78. General: She is in no acute distress. Cardiovascular: She is in a regular rate and rhythm. Present rhythm is sinus. She has no lower extremity edema. Chest Examination: Sounds clear. She has a somewhat poor inspiratory effort. Abdomen: Soft, nontender, nondistended. She has no obvious organomegaly. Skin Examination: Warm and dry throughout without any rashes. PERTINENT DATA: She has a white count of 6.2, hematocrit is 38, platelet count is 284,000. Her sodium is 142, potassium 3.7, BUN 11, creatinine 0.6. Magnesium level is 2. ASSESSMENT: Atrial fibrillation. PLAN: The patient is doing well from that standpoint. Her beta-ludwig has been escalated and seems to be doing the job. She has no longer on a diltiazem infusion. She is a candidate for anticoagulation based on her risk assessment, from the standpoint that she has an elevated risk for cerebrovascular accident. We will need to assess her risk of taking the medication from a bleeding risk standpoint. We will wait for the patient to be more alert prior to making that final decision.
--- NOTE | 2016-12-19 14:40 | Diag Imaging Result Document ---
PROCEDURE NAME: CHEST-PORTABLE - 12/19/2016 AP PORTABLE CHEST: TIME: 1345 hours. FINDINGS: There is hazy opacity throughout both lungs which has worsened with respect to the right lung than on 12/16/2016. IMPRESSION: Pulmonary edema.
[2016-12-19] MEDS: NORCO-10 PO PRN (18:42)
[2016-12-19] MEDS ORDERED: VASELINE ONE (23:47)
[2016-12-20] MEDS ORDERED: VASELINE TOP PRN (00:37)
[2016-12-20] MEDS: NORCO-10 PO PRN ×3 (01:22→12:07)
[2016-12-20] MEDS: MORPHINE IV PRN (04:26)
[2016-12-20] MEDS: CATAPRES PO PRN (04:26)
[2016-12-20] MEDS: ZOSYN 3.375 GM/NS 50 ML IV SCH ×4 (04:45→22:15)
[2016-12-20] MEDS: LOPRESSOR PO SCH (05:55)
[2016-12-20 06:01] LABS: MANUAL DIFF NEEDED? NO
[2016-12-20 06:07] LABS: BASO% 0.3 % (0.0-0.8); HEMATOCRIT 38.9 % (37.0-47.0); HEMOGLOBIN 12.7 g/dL (12.0-16.0); IMM GRAN# 0.03 X1000 (0.0-0.04); IMM GRAN% 0.8 % (0.0-0.5); LYMPH# 0.54 X1000 (1.2-3.4); LYMPH% 14.8 % (20.5-51.1); MCH 28.5 PG (27-31); MCHC 32.6 g/dL (33-37); MCV 87.4 FL (81-99); MONO# 0.08 X1000 (0.11-0.59); MONO% 2.2 % (1.7-9.3); MPV 10.8 FL (7.4-10.4); NEUT% 81.9 % (42.2-75.2); PLT 258 X1000 (130-400); RBC 4.45 XMIL (4.2-5.4)
[2016-12-20 06:43] LABS: AGAP 14; ALBUMIN 2.6 g/dL (3.5-5.0); ALKALINE PHOSPHATASE 101 U/L (32-104); BUN 13 mg/dL (8-22); CALCIUM 8.7 mg/dL (8.8-10.2); CHLORIDE 105 mmol/L (98-107); COSMO 283; GOT 13 U/L (10-30); GPT 18 U/L (10-36); POTASSIUM 4.5 mmol/L (3.5-5.1); SODIUM 139 mmol/L (136-145); TCO2 20 mmol/L (25-35); TOTAL BILIRUBIN 0.27 mg/dL (0.20-1.00); TOTAL PROTEIN 6.1 g/dL (6.3-8.3)
[2016-12-20] MEDS: LOVENOX SUBQ SCH (07:50)
[2016-12-20] MEDS: CARDIZEM CD PO SCH (08:13)
[2016-12-20] MEDS: HYDROCHLOROTHIAZIDE PO SCH (08:13)
[2016-12-20] MEDS: TOPROL XL PO SCH ×2 (08:13→20:26)
--- NOTE | 2016-12-20 08:15 | PROGRESS NOTE ---
DATE: 12/20/2016 SUBJECTIVE: Ms. Marshall, this morning, is calm. She has no complaints. She is asking about going to a regular room. OBJECTIVE: Vital Signs: She is afebrile. Heart rate is 73. Her blood pressure this morning is 196/89. She has been a bit elevated being in the 140s to 190s systolic. Her I's and O's seem relatively flat over the last several days. General: She is in no acute distress. Cardiovascular: She is in a regular rate and rhythm. She has no obvious murmurs. She appears to be in sinus presently on telemetry. Chest: Clear to auscultation bilaterally. No increased work of breathing. Abdomen: Soft, nontender, nondistended. She has no obvious organomegaly. LABORATORY DATA: Pertinent data white count 3.6. Her hematocrit is 38.9, platelet count is 258,000. Her sodium is 139, potassium 4.5. Her BUN is 13, creatinine 0.7. ASSESSMENT: Atrial fibrillation. PLAN: The patient needs to be considered for long-term anticoagulation, but I am hesitant to start this based on her episodic confusion over the last 24-48 hours. Would recommend initiation prior to going home if her mental status clears. She did have a chest x-ray yesterday demonstrating a suggestion of some pulmonary edema. Her blood pressure has been significantly elevated. I will add in some hydrochlorothiazide today.
[2016-12-20] MEDS ORDERED: ATIVAN PO PRN (10:53)
[2016-12-20] MEDS: ATIVAN PO PRN (17:13)
[2016-12-20] MEDS: AMBIEN PO PRN (20:26)
[2016-12-21] MEDS: NORCO-10 PO PRN ×3 (00:02→23:35)
[2016-12-21] MEDS: ATIVAN PO PRN ×3 (03:27→23:35)
[2016-12-21] MEDS: ZOSYN 3.375 GM/NS 50 ML IV SCH ×3 (05:25→17:35)
[2016-12-21] MEDS: SYNTHROID PO SCH (06:03)
[2016-12-21] MEDS: LOVENOX SUBQ SCH (06:03)
[2016-12-21] MEDS: TOPROL XL PO SCH ×2 (10:23→22:12)
[2016-12-21] MEDS: HYDROCHLOROTHIAZIDE PO SCH (10:23)
[2016-12-21] MEDS: CARDIZEM CD PO SCH (10:23)
--- NOTE | 2016-12-21 12:25 | Diag Imaging Result Document ---
PROCEDURE NAME: CT THORAX W/CONTRAST - 12/21/2016 CT THORAX WITH CONTRAST: Exam performed with intravenous contrast. A dose-reduction protocol was used. COMPARISON: No comparison of CT thorax is available. FINDINGS: There are medium bilateral pleural effusions. There is some associated compressive atelectasis at the bilateral lung bases. The lungs are hazy elsewhere suggesting pulmonary edema. There is no dense consolidation identified. There is no pneumothorax seen. There is a calcified granuloma from old granulomatous disease at the posterolateral right lower lobe. There are nonspecific small noncalcified mediastinal lymph nodes. Included sections of the upper abdomen show postsurgical changes of hysterectomy. The visualized upper right kidney appears atrophic, and this has been noted on previous ultrasound of the abdomen 12/16/[address] abdomen of 03/01/2014. There is uncomplicated diverticulosis noted at the splenic flexure colon. IMPRESSION: Apparent pulmonary edema with medium bilateral pleural effusions. No discrete pneumonia.
[2016-12-22] MEDS: ZOSYN 3.375 GM/NS 50 ML IV SCH ×4 (04:29→20:20)
[2016-12-22] MEDS: LOVENOX SUBQ SCH (06:06)
[2016-12-22] MEDS: SYNTHROID PO SCH (06:06)
[2016-12-22] MEDS: HYDROCHLOROTHIAZIDE PO SCH (08:52)
[2016-12-22] MEDS: ATIVAN PO PRN ×2 (08:52→20:20)
[2016-12-22] MEDS: TOPROL XL PO SCH ×2 (08:52→20:20)
[2016-12-22] MEDS: NORCO-10 PO PRN ×2 (08:53→20:20)
[2016-12-22] MEDS: CARDIZEM CD PO SCH (08:53)
[2016-12-22] MEDS ORDERED: ALBUMIN 25% IV ONE (13:48)
[2016-12-22] MEDS ORDERED: LASIX IV ONE (13:49)
--- NOTE | 2016-12-22 14:04 | PROGRESS NOTE ---
DATE: 12/22/2016 CHIEF COMPLAINT: Shortness of breath, irregular heart beat. SUBJECTIVE: Ms. Marshall is breathing somewhat better. She denies having any chest pain. She is uncomfortable because of the Lai catheter. Telemetry shows that her rate is controlled. There have been some episodes where she has converted completely to sinus rhythm. Her CT scan of the chest done yesterday shows bilateral pleural effusions, compressive atelectasis. OBJECTIVE: Blood pressure is 135/89, temperature 97.9, pulse 98, respirations 20. She is awake, alert and oriented, in no distress. HEENT: No significant venous distention. Chest showed markedly diminished breath sounds, especially at the level of the right lung. Heart sounds are for the most part regular. Abdomen is nontender. Extremities showed 1+ edema. Pulses are diminished. Neurologic: She moves all 4 extremities, follows commands. Gait is normal. DIAGNOSTIC DATA: Blood work showed sodium 139, potassium 4.5, BUN is 13, creatinine 0.7, chloride 105, carbon dioxide is 20. Albumin is down to 2.6. IMPRESSION: 1. The patient has paroxysmal atrial fibrillation. Rate is better controlled on higher doses of beta ludwig as well as calcium ludwig; however, she is developing congestive heart failure, probably diastolic dysfunction. 2. Recent bout of respiratory illness, possibly pneumonia, bronchitis. RECOMMENDATIONS: We will give albumin plus furosemide to optimize her volume status. Further advice will be forthcoming. She may need a steady dose of loop diuretics. We will follow her along.
--- NOTE | 2016-12-22 17:53 | CONSULTATION ---
DATE OF CONSULTATION: 12/22/2016 REASON FOR CONSULTATION: Bilateral pleural effusions on CT of the chest. IMPRESSION: 1. Bilateral moderate pleural effusions on computed tomography of the chest, likely hydrostatic from medical deconditioning, fluctuating volumes and some compressive atelectasis. 2. Paroxysmal atrial fibrillation. 3. Fibromyalgia with chronic opiate and benzodiazepine use. 4. Possible likely aspiration as well. 5. History of Clostridium difficile colitis. 6. Depression. 7. Anxiety 8. Hyperlipidemia. 9. History of tobacco abuse. RECOMMENDATIONS: Continue to monitor chest as well as O2 saturations. Agree with gentle diuresis as well as mobilizing the patient. She seems to be quite altered in her mental status as well. Questionable withdrawal symptoms possibly. Consult physical therapy to mobilize her and strengthening. HISTORY OF PRESENT ILLNESS: A 71-year-old, female who presented to the hospital after she was found down by her with a questionable overuse of her opiates. She was given Narcan. She was admitted with possible aspiration. She was began on Zosyn. At that time she developed paroxysmal atrial fibrillation up on arrival, cardiology has been consulted as well. We are consulted to assist in her care after review of her CT of the chest. PAST MEDICAL HISTORY: Significant for history of the previous pneumonia. Hypertension. Fibromyalgia. Chronic pain. Osteoporosis. Hypothyroidism. Hypertension. History of Clostridium difficile. History of atrial fibrillation. SOCIALLY: She is a former smoker, having smoked up to a pack and a half of cigarettes a day in the past, but has been quit for many years. She does not use alcohol, but she does take chronic opiates and benzodiazepines apparently from the chart. FAMILY HISTORY: Significant for hypertension, arthritis. CURRENT MEDICATIONS: [place] 10 and t.i.d. p.r.n. Cardizem CD 180 mg daily. She has been on Lovenox since admission. Hydrochlorothiazide 25 mg daily. Synthroid 50 mcg daily. Ativan 0.5 t.i.d. p.r.n. Toprol-XL 100 mg b.i.d. At home she took Ambien at bedtime p.r.n. sleep. ALLERGIES: She has no known drug allergies. REVIEW OF SYSTEMS: Difficult to obtain secondary to her confusion. Her nurse relates she has not had any further diarrhea. She is having some confusion and difficulty following commands and paying attention. No distress. PHYSICAL EXAMINATION: General: She is in no respiratory distress. Sitting up on room air. Vital Signs: Temperature 97.9, pulse of 98, blood pressure 135/89 with a respiratory rate of 20, O2 saturation is 99% on room air. HEENT: She is atraumatic and normocephalic. PERRLA. Oral mucosa is without erythema. Neck: Supple. Chest: Revealed bilateral equal breath sounds which are clear anteriorly. Diminished in the bases posteriorly. No crackles. Cardiac: Regular rate and rhythm. Abdomen: Soft, nontender. Positive bowel sounds x4. Extremities : No cyanosis, clubbing. Trace lower extremity edema. Neurologically: She is alert, she follows commands. Poor memory and recall. Difficulty following directions at the present time. She has equal strength. Transitions up to the chair with assistance. : She has a Lai catheter. Clear yellow urine. PERTINENT DATA: Her CT of the chest was reviewed by Dr. Doe and shows small and medium bilateral pleural effusions. No acute pneumonia present. Some compressive atelectasis. Mild increased interstitial edema. No consolidation and no mass. Laboratory Data: Sodium 139, potassium of 4.5, chloride of 105, BUN of 13, creatinine 0.7, and glucose 193. White count 3.6, hemoglobin 12.7, hematocrit 38.9, and platelets of 258,000. Her ABG on admission 7.45, pH CO2 of 33, PO2 of 77 on 3 L. Her echocardiogram shows an estimated ejection fraction 59%. The PA pressure estimated at 43mmHg. Hypokinesis consistent with ischemic heart disease. Small circumferential pericardial effusion. No tamponade. Her EKG initially had atrial fibrillation with RVR. Now seems to be in and out of sinus rhythm with atrial fibrillation in the last 24 hours. Dictated by TANYA Arias for Jamil Doe MD MTDD
[2016-12-22] MEDS: AMBIEN PO PRN ×2 (20:20)
[2016-12-23] MEDS: ZOSYN 3.375 GM/NS 50 ML IV SCH ×4 (04:00→22:47)
[2016-12-23] MEDS: ATIVAN PO PRN ×3 (04:05→22:46)
[2016-12-23] MEDS: NORCO-10 PO PRN ×3 (04:05→18:07)
[2016-12-23] MEDS: LASIX IV SCH ×2 (04:06→15:37)
[2016-12-23] MEDS: LOVENOX SUBQ SCH (06:03)
[2016-12-23] MEDS: SYNTHROID PO SCH (06:03)
[2016-12-23 07:23] LABS: MANUAL DIFF NEEDED? NO
[2016-12-23 07:33] LABS: BASO% 1.1 % (0.0-0.8); EOS# 0.42 X1000 (0.0-0.7); EOS% 7.4 % (0.0-10.0); HEMATOCRIT 41.3 % (37.0-47.0); HEMOGLOBIN 13.4 g/dL (12.0-16.0); IMM GRAN% 1.8 % (0.0-0.5); LYMPH# 2.04 X1000 (1.2-3.4); LYMPH% 35.9 % (20.5-51.1); MCH 28.5 PG (27-31); MCHC 32.4 g/dL (33-37); MCV 87.7 FL (81-99); MONO# 0.87 X1000 (0.11-0.59); MONO% 15.3 % (1.7-9.3); NEUT% 38.5 % (42.2-75.2); PLT 393 X1000 (130-400); RBC 4.71 XMIL (4.2-5.4)
[2016-12-23 07:38] LABS: CALCIUM 8.9 mg/dL (8.8-10.2); POTASSIUM 3.1 mmol/L (3.5-5.1)
--- NOTE | 2016-12-23 07:58 | Diag Imaging Result Document ---
PROCEDURE NAME: CHEST-1 VIEW - 12/23/2016 AP PORTABLE CHEST ERECT, 12/23/2016 AT 0555 HOURS: FINDINGS: There is a left pleural effusion and basilar atelectasis. The lungs are much clearer than on 12/19/2016. They are better expanded as well. IMPRESSION: Residual atelectasis and pleural effusion on the left.
[2016-12-23] MEDS: HYDROCHLOROTHIAZIDE PO SCH (09:44)
[2016-12-23] MEDS: TOPROL XL PO SCH ×2 (09:44→22:46)
[2016-12-23] MEDS: CARDIZEM CD PO SCH (09:45)
--- NOTE | 2016-12-23 13:48 | PROGRESS NOTE ---
DATE: 12/23/2016 SUBJECTIVE: Ms. Marshall seems more alert today. Family is present and reports that she is more at her baseline. PHYSICAL EXAMINATION: Vital signs: She is afebrile. Heart rates 66. Blood pressure 145/65. Telemetry shows she is in sinus. Generally: No acute distress. Cardiovascular: She is in a regular rate and rhythm. She has no obvious murmurs. No S3. No lower extremity edema. Chest: Her chest exam is clear bilaterally. She has no increased work of breathing. Abdomen: Soft, nontender, nondistended. She has no obvious organomegaly. Skin Exam: Warm and dry throughout. PERTINENT DATA: Her white count is 5.7, hematocrit 41.3, platelet count is 393,000. Sodium 142, potassium 3.1, her BUN is 13, creatinine is 1.1. ProBNP is 2009. ASSESSMENT: 1. Possible diastolic heart failure. 2. Atrial fibrillation. 3. Altered mental status. PLAN: Mental status appears improved. I will remove Lai catheter per her request as long she maintained strict I's and O's. She has atrial fibrillation and would benefit from long-term anticoagulation, but again I am hesitant to do this without ensuring that the patient is stable from a mobility standpoint as well as her mental status is clear. Will continue to follow. Rate control seems reasonable.
[2016-12-23] MEDS ORDERED: NS 250 ML ONE (15:45)
[2016-12-23] MEDS: POTASSIUM CHLORIDE 20 MEQ/SWI 100 ML IV SCH ×2 (16:38→19:00)
[2016-12-23] MEDS: KLOR-CON PO SCH (22:46)
[2016-12-23] MEDS: AMBIEN PO PRN (22:46)
[2016-12-24] MEDS: ZOSYN 3.375 GM/NS 50 ML IV SCH ×4 (04:00→21:31)
[2016-12-24 06:33] LABS: MANUAL DIFF NEEDED? NO
[2016-12-24 06:40] LABS: BASO% 0.6 % (0.0-0.8); EOS# 0.49 X1000 (0.0-0.7); EOS% 5.7 % (0.0-10.0); HEMATOCRIT 39.9 % (37.0-47.0); IMM GRAN# 0.13 X1000 (0.0-0.04); IMM GRAN% 1.5 % (0.0-0.5); LYMPH% 29.1 % (20.5-51.1); MCH 28.4 PG (27-31); MCHC 32.6 g/dL (33-37); MCV 87.1 FL (81-99); MONO# 1.08 X1000 (0.11-0.59); MONO% 12.6 % (1.7-9.3); MPV 10.1 FL (7.4-10.4); NEUT% 50.5 % (42.2-75.2); PLT 414 X1000 (130-400); RBC 4.58 XMIL (4.2-5.4)
[2016-12-24] MEDS: LASIX IV SCH ×2 (06:49→17:55)
[2016-12-24] MEDS: SYNTHROID PO SCH (06:50)
[2016-12-24] MEDS: LOVENOX SUBQ SCH (06:50)
[2016-12-24 06:57] LABS: CALCIUM 8.3 mg/dL (8.8-10.2); MAGNESIUM 1.8 mg/dL (1.5-2.7)
[2016-12-24] MEDS: HYDROCHLOROTHIAZIDE PO SCH (09:08)
[2016-12-24] MEDS: TOPROL XL PO SCH ×2 (09:08→21:30)
[2016-12-24] MEDS: KLOR-CON PO SCH ×4 (09:08→21:30)
[2016-12-24] MEDS: CARDIZEM CD PO SCH (09:09)
[2016-12-24] MEDS: NORCO-10 PO PRN ×2 (09:12→18:07)
[2016-12-24] MEDS: ATIVAN PO PRN (09:13)
--- NOTE | 2016-12-24 09:31 | Diag Imaging Result Document ---
PROCEDURE NAME: CHEST-PORTABLE - 12/24/2016 SINGLE FRONTAL RADIOGRAPH OF THE CHEST: COMPARISON: 12/23/2016. FINDINGS: Inspiration is suboptimal. The mild atelectasis and possible small effusion at the left lung base has essentially resolved. No new consolidation is identified. Cardiac silhouette is stable. IMPRESSION: Essential resolution of the mild atelectasis/small effusion at the left lung base.
[2016-12-24] MEDS: POTASSIUM CHLORIDE 20 MEQ/SWI 100 ML IV SCH ×3 (10:38→11:41)
--- NOTE | 2016-12-24 11:17 | EKG Report ---
Test Performed on : 12/24/2016 10:48:05 AM Test Reason : Atrial Fibrillation Blood Pressure : / mmHG Vent. Rate : 059 BPM Atrial Rate : 059 BPM P-R Int : 154 ms QRS Dur : 090 ms QT Int : 492 ms P-R-T Axes : 037 005 048 degrees QTc Int : 487 ms Sinus bradycardia. Moderate voltage criteria for LVH, may be normal variant Inferior infarct , age undetermined Abnormal ECG When compared with ECG of 15-DEC-2016 12:40, Sinus rhythm. has replaced Atrial fibrillation. Vent. rate has decreased BY 80 BPM Inferior infarct is now present Nonspecific T wave abnormality, improved in Inferior leads T wave inversion now evident in Anterior leads Confirmed by Evangelina ROCA, Kody Pappas ([id number]) on 12/24/2016 5:24:26 PM
[2016-12-24] MEDS ORDERED: KLOR-CON PO ONE (11:25)
--- NOTE | 2016-12-24 13:07 | PROGRESS NOTE ---
DATE: 12/24/2016 SUBJECTIVE: Ms. Marshall reports she is doing well. She has been up and ambulating. She feels better. She is not having any heart racing. PHYSICAL EXAMINATION: She is afebrile. Her heart rate 69, blood pressure 139/53. General: She is in no acute distress. Cardiovascular: She sounds to be in a regular rate and rhythm. She has no obvious murmurs. She has no S3. No lower extremity edema. Chest: Clear bilaterally. No increased work of breathing. Abdomen: Soft, nontender. PERTINENT DATA: Her white count is 8.6, hematocrit 39.9, platelet count is 414,000. Sodium 140, potassium 3, BUN 15, creatinine is 1.1. Her proBNP today is 586. ASSESSMENT: 1. Altered mental status. 2. Atrial fibrillation. PLAN: Patient does meet guidelines for anticoagulation based on her [id number] which is at least 3 in this patient. I will discontinue her aspirin therapy as an outpatient and I would recommend at this point, placing her on Eliquis 2.5 mg b.i.d. We will initiate that in the morning. I will initially try on the lower dose and consider escalation as an outpatient.
[2016-12-24] MEDS: AMBIEN PO PRN (21:38)
[2016-12-25] MEDS: ZOSYN 3.375 GM/NS 50 ML IV SCH (03:25)
[2016-12-25] MEDS ORDERED: HEPARIN ONE (03:28)
--- NOTE | 2016-12-25 07:42 | DISCHARGE SUMMARY ---
ADMISSION DATE: 12/15/2016 DISCHARGE DATE: 12/25/2016 DISCHARGE DIAGNOSES: 1. Paroxysmal atrial fibrillation with rapid ventricular response. 2. Bilateral pleural effusions. 3. Pneumonia. 4. Altered mental status with possibility of having opioid overdose. 5. Leukocytosis with altered mental status likely secondary to pneumonia and sepsis. 6. Hypertension. 7. Hypokalemia. 8. Hypothyroidism. HOSPITAL COURSE: Ms. Shirley Marshall is a 71-year-old female who was brought to the hospital after she was found to have altered mental status. She did response to Narcan in the emergency room and therefore it was assumed that she was having opioid overdose but later on she started having atrial fibrillation with the RVR and she had to be given IV diltiazem. She also received IV antibiotics including Zosyn for possibility of sepsis, which was the most likely scenario since her condition gradually improved. She remained in the ICU for several days. Cardiology along with pulmonary consultations were obtained who were actively involved in the care of this patient during this hospital admission. The patient has gradually improved. She had received IV diuretics to get rid of her pleural effusions. She was initially diagnosed as having a pneumonia on chest x-rays and subsequently there was some clearing but later on a CT scan showed bilateral pleural effusions with no infiltrate. An echocardiogram was also obtained on that showed left ventricular function to be preserved at about 59%. Patient's condition has gradually improved and she is an alert and oriented today. Her blood pressure has also been within desired range. Although her pleural effusion was relieved with IV furosemide she ended up having hypokalemia for which potassium supplementation was provided. Her leukocytosis has also improved and overall she is ready to be discharged today. DISCHARGE MEDICATIONS: 1. Metoprolol ER 100 mg orally twice daily. 2. Diltiazem CD 180 mg orally once daily. 3. Furosemide 20 mg orally once daily. 4. Potassium chloride 10 mEq orally once daily. 5. Eliquis 2.5 mg orally twice daily. 6. Gabapentin 600 mg orally 3 times a day. 7. Requip 1 mg orally once daily at bedtime. 8. Omeprazole 40 mg orally once daily in the morning. 9. Levothyroxine 50 mcg orally once daily. 10. Bath 10 mg orally 3 times a day as needed for pain. 11. Lorazepam 0.5 mg 3 times a day as needed for anxiety. FOLLOWUP: She will follow up with me in the office in 5-7 days. CONDITION: Stable. DISPOSITION: Home. TIME SPENT: A total of more than 40 minutes with spent during the discharge process. [facility]
[2016-12-25 08:18] LABS: CALCIUM 8.9 mg/dL (8.8-10.2); POTASSIUM 3.7 mmol/L (3.5-5.1)
[2016-12-25 08:56] VITALS: BP 155/60
[2016-12-25] MEDS ORDERED: ELIQUIS PO SCH (09:00)
[2016-12-25] MEDS: HYDROCHLOROTHIAZIDE PO SCH (09:03)
[2016-12-25] MEDS: KLOR-CON PO SCH (09:03)
[2016-12-25] MEDS: CARDIZEM CD PO SCH (09:03)
[2016-12-25] MEDS: SYNTHROID PO SCH (09:06)
[2016-12-25] MEDS: TOPROL XL PO SCH (09:06)
== END 2016-12-25 09:26 | disposition home health service (06) | DRG 917 ==
LOC: EDBD → ED 12:38 → EDIPHOLD 17:07 → ICU 12-16 03:49 → 3N 12-20 09:10
PROVIDERS: ADMIT Internal Medicine; ATTEND Internal Medicine
DX: T40.601A Poisoning by unspecified narcotics, accidental (unintentional), initial encounter (principal); A41.9 Sepsis, unspecified organism; J69.0 Pneumonitis due to inhalation of food and vomit; K52.1 Toxic gastroenteritis and colitis; I50.30 Unspecified diastolic (congestive) heart failure; I11.0 Hypertensive heart disease with heart failure; I48.0 Paroxysmal atrial fibrillation; R41.82 Altered mental status, unspecified; E87.6 Hypokalemia; E03.9 Hypothyroidism, unspecified; E78.5 Hyperlipidemia, unspecified; N32.81 Overactive bladder; M81.0 Age-related osteoporosis without current pathological fracture; F41.9 Anxiety disorder, unspecified; F32.9 Major depressive disorder, single episode, unspecified; M79.7 Fibromyalgia; T50.7X5A Adverse effect of analeptics and opioid receptor antagonists, initial encounter; Z82.49 Family history of ischemic heart disease and other diseases of the circulatory system; Z87.891 Personal history of nicotine dependence; Z79.82 Long term (current) use of aspirin; Z79.899 Other long term (current) drug therapy; Z79.891 Long term (current) use of opiate analgesic
CPT/HCPCS: 51702; 70450; 71010; 71260; 76700; 80048; 80053; 81001; 82550; 82805; 82948; 83605; 83735; 83880; 84436; 84443; 84484; 85025; 85610; 85730; 86850; 86900; 86901; 87040; 87324; 87449; 87804; 93005; 93010; 93306; 94761; 94799; 96365; 96366; 96367; 96368; 96372; 96375; 96376; G0480; J0131; J1630; J1650; J1940; J2060; J2270; J2310; J2543; J2550; J3370; J3480; J3486; J7030; J7050; Q9967; 80320; 80324; 80329; 80345; 80346; 80349; 80353; 80358; 80361; 80365; 83992; 97110-GP; 97116-GP; 97530-GP; P9047

== ENCOUNTER 2019-09-17 15:28 | Inpatient (IN) ==
[2019-09-17 17:01] LABS: URINE SOURCE CLEAN CATCH
[2019-09-17 17:04] LABS: BILIRUBIN URINE NEGATIVE (NEGATIVE); BLOOD URINE NEGATIVE (NEGATIVE); COLOR YELLOW; GLUCOSE URINE NEGATIVE (NEGATIVE); KETONE URINE NEGATIVE (NEGATIVE); LEUKOCYTES URINE NEGATIVE (NEGATIVE); NITRITE URINE NEGATIVE (NEGATIVE); PH URINE 6.5; PROTEIN URINE 50 mg/dL (NEGATIVE); SP GRAVITY URINE 1.013; TURBIDITY URINE CLEAR (CLEAR); UROBILINOGEN URINE NORMAL (NORMAL)
[2019-09-17 17:05] LABS: UR EPITHELIAL CELLS <10 /HPF (<10); URINE BACTERIA NEGATIVE /HPF; URINE RBC <10 /HPF (<10); URINE WBC <10 /HPF (<10)
[2019-09-17 17:23] LABS: UR AMPHETAMINES QUAL NONE DETECTED (NONE DETECT); UR BARBITUATES QUAL NONE DETECTED (NONE DETECT); UR BENZODIAZEPIN QUAL NONE DETECTED (NONE DETECT); UR CANNABINOIDS QUAL NONE DETECTED (NONE DETECT); UR COCAINE QUAL NONE DETECTED (NONE DETECT); UR METHADONE QUAL NONE DETECTED (NONE DETECT); UR OPIATES QUAL NONE DETECTED (NONE DETECT); UR OXYCODONE QUAL NONE DETECTED (NONE DETECT); UR PCP QUAL NONE DETECTED (NONE DETECT)
--- NOTE | 2019-09-17 17:32 | Diag Imaging Result Doc PS360 ---
EXAM: CHEST-1 VIEW HISTORY: asp pn TECHNIQUE: Single view COMPARISON: 02/23/2018 FINDINGS: The lungs are well expanded. The heart is not enlarged. The vessels are distended. There are no infiltrates. No effusion identified. IMPRESSION: Pulmonary edema or pneumonia Electronically signed by Mukesh Adam 09/17/2019 5:29 PM
--- NOTE | 2019-09-17 17:48 | Diag Imaging Result Doc PS360 ---
EXAM: CT HEAD W/O CONTRAST HISTORY: ams TECHNIQUE: CT head without contrast COMPARISON: 02/22/2018 FINDINGS: No parenchymal hemorrhage. No epidural or subdural hematoma. No subarachnoid hemorrhage. Mild atrophy with mild chronic microvascular ischemic changes. No mass identified on this noncontrasted exam. No hydrocephalus. No sinus opacification. IMPRESSION: 1.No hemorrhage 2.Mild atrophy with chronic microvascular ischemic changes This exam was performed using automated exposure control, adjustment of mA or kV according to patient size, and/or use of iterative reconstruction technique. Electronically signed by Mukesh Adam 09/17/2019 5:46 PM
[2019-09-17 18:32] LABS: BASO# 0.04 X1000 (0.0-0.2); BASO% 0.2 % (0.0-0.8); EOS# 0.35 X1000 (0.0-0.7); EOS% 1.8 % (0.0-10.0); HEMATOCRIT 48.4 % (37.0-47.0); HEMOGLOBIN 15.3 g/dL (12.0-16.0); IMM GRAN# 0.06 X1000 (0.0-0.04); IMM GRAN% 0.3 % (0.0-0.5); LYMPH# 1.03 X1000 (1.2-3.4); LYMPH% 5.3 % (20.5-51.1); MCH 28.5 PG (27-31); MCHC 31.6 g/dL (33-37); MCV 90.3 FL (81-99); MONO# 1.69 X1000 (0.11-0.59); MONO% 8.7 % (1.7-9.3); MPV 10.4 FL (7.4-10.4); NEUT# 16.21 X1000 (1.4-6.5); NEUT% 83.7 % (42.2-75.2); PLT 327 X1000 (130-400); RBC 5.36 XMIL (4.2-5.4); RDW 13.5 % (11.5-14.5); WBC 19.38 X1000 (4.8-10.8)
[2019-09-17] MEDS ORDERED: ROCEPHIN 1 GM in NS 50 ML IV ONE (18:42)
[2019-09-17 18:47] LABS: INR 1.12; PROTIME 14.5 Seconds (11.0-16.0); PTT 25.4 Seconds (22.3-41.8)
--- NOTE | 2019-09-17 18:47 | PROVIDER DOCUMENTATION ---
HPI-Abdominal Pain/GI Problem - General Chief Complaint: Abdominal Pain Stated Complaint: ABDOMINAL PAIN Time Seen by Provider: 09/17/19 16:07 Source: family Allergies/Adverse Reactions: Patient Allergies Allergy/AdvReac Type Severity Reaction Status Date / Time No Known Allergies Allergy Verified 02/22/18 12:48 Home Medications: Home Medication List Medication Instructions Recorded Confirmed Last Taken Type Levothyroxine [Synthroid] 50 microgm PO DAILY #0 tablet 02/06/16 09/17/19 03/10/18 Rx Rivaroxaban [Xarelto] 15 mg PO QAM 01/06/18 09/17/19 03/10/18 History Tizanidine HCl [Zanaflex] 4 mg PO BID 02/23/18 09/17/19 03/10/18 History Clonidine [Catapres] 0.1 mg PO Q6H PRN PRN 09/17/19 09/17/19 Unknown History Digoxin [Digox] 125 mcg PO DAILY 09/17/19 09/17/19 Unknown History Gabapentin 600 mg PO TID 09/17/19 09/17/19 Unknown History Hydrocodone/Acetaminophen [[place] 1 ea PO Q12H PRN 09/17/19 09/17/19 Unknown History 10-325 Tablet] Metoprolol Succinate E.r. [Toprol 100 mg PO DAILY 09/17/19 09/17/19 Unknown History Xl] ROSUVAstatin [Crestor] 20 mg PO QHS 09/17/19 09/17/19 Unknown History Ropinirole [Requip] 1 mg PO HS 09/17/19 09/17/19 Unknown History Sertraline HCl 100 mg PO DAILY 09/17/19 09/17/19 Unknown History - History of Present Illness-ABD Nature of Presenting Problems: Patient is said to c/o abdominal pain today and became lethargic per daughter. Daughter states that patient granddaughter had called her stating that patient had complained of abdominal pain and then became lethargic. Patient awake , lethargic , unable to provide history and Daughter was unable to provide more history. Abdominal Pain Onset Location: reports: other (patient is unable to give hx, limited hx from daughter) Review of Systems - Adult - REVIEW OF SYSTEMS - ADULT ROS:: unobtainable per condition Constitutional: reports: fatique Gastrointestinal: reports: see HPI Past History - Adult - PAST MEDICAL HISTORY-ADULT Review of Records: reports: Nursing Assessment Review, Medications Reviewed, Social history reviewed & non-contributory. Major Childhood Illnesses: reports: denies history Cardiovascular: reports: A-Fib, HTN, hyperlipidemia Respiratory: reports: denies history Gastrointestinal: reports: GERD Obstetrical/Gynecological: reports: denies history Genitourinary: reports: denies history Musculoskeletal: reports: chronic pain (back) Neurological: reports: denies history Endocrine/Immune: reports: thyroid disorder (hypothyroid) Other Conditions: reports: denies history - PRIOR SURGERIES/PROCEDURES Surgical/Procedure History: reports: hysterectomy, back/neck (back) - IMMUNIZATION STATUS Childhood Immunizations: See Nurse Assessment Flu Vaccine: See Nurse Assessment - FAMILY HISTORY Family History: reviewed, not pertinent - SOCIAL HISTORY Smoking: denies (denied by daughter) Substance Use: none/never ( by [employer]) Alcohol Use Frequency: never (by BackOpssravani) Physical Exam-General - PHYSICAL EXAM-ADULT Exam Limited by: check vitial signs on the monitor. Diastolic bp entry below, was a mistake Initial Vital Signs Reviewed: Yes - CONSTITUTIONAL General Appearance: other (awake, groaning) - EYES Eyes: PERRL/EOMI - HEAD, EARS, NOSE, MOUTH & THROAT HENMT: normocephalic/atraumatic - NECK Neck: non-tender, full range of motion - RESPIRATORY Respiratory: chest non-tender, lungs clear - CARDIOVASCULAR Cardiovascular: no edema - GASTROINTESTINAL (ABDOMEN) Abdominal Exam: soft, no organomegaly - MUSCULOSKELETAL Back Exam: no vertebral tenderness Extremity: non-tender - SKIN Integumentary: normal color - NEUROLOGIC Neurologic: other (unable to acess at this time) - PSYCHIATRIC Psych/Mental Status: oriented x 3 (but lethargic, responds very slowly.), other Progress - PLAN OF CARE/RESULTS Progress/Plan/Lab Results: Vital Signs - 8 hr 09/17/19 15:54 Temperature 99.2 F Pulse Rate 97 H Respiratory Rate 30 H Blood Pressure 188/188 O2 Sat by Pulse Oximetry 90 L 09/17/19 16:42 Clostridioides difficile Toxin Assay - Final Stool Laboratory Results - last 24 hr 09/17/19 09/17/19 09/17/19 16:41 16:41 18:20 WBC 19.38 H RBC 5.36 Hgb 15.3 Hct 48.4 H MCV 90.3 MCH 28.5 MCHC 31.6 L RDW Std Deviation 13.5 Plt Count 327 MPV 10.4 Immature Gran % (Auto) 0.3 Neut % (Auto) 83.7 H Lymph % (Auto) 5.3 L Sharkey % (Auto) 8.7 Eos % (Auto) 1.8 Baso % (Auto) 0.2 Immature Gran # (Auto) 0.06 H Neut # (Auto) 16.21 H Lymph # (Auto) 1.03 L Sharkey # (Auto) 1.69 H Eos # (Auto) 0.35 Baso # (Auto) 0.04 Urine Source CLEAN CATCH Urine Color YELLOW Urine Turbidity CLEAR Urine pH 6.5 Ur Specific [place] 1.013 Urine Protein 50 A Ur Glucose (Stick) NEGATIVE Ur Ketones (Stick) NEGATIVE Urine Blood NEGATIVE Urine Nitrite NEGATIVE Urine Bilirubin NEGATIVE Urobilinogen Dipstick NORMAL Urine Leukocytes NEGATIVE Urine WBC (Auto) <10 Urine RBC (Auto) <10 U Epithel Cells (Auto) <10 Urine Bacteria (Auto) NEGATIVE Urine Opiates Screen NONE DETECTED Ur Oxycodone Screen NONE DETECTED Ur Methadone, Qual NONE DETECTED Ur Barbiturates Screen NONE DETECTED Ur Phencyclidine Scrn NONE DETECTED Ur Amphetamines Screen NONE DETECTED U Benzodiazepines Scrn NONE DETECTED Urine Cocaine Screen NONE DETECTED U Cannabinoids Screen NONE DETECTED Orders Category Date Time Status Cardiac Monitoring DIRECTED Care 09/17/19 16:58 Active IV Insertion ORDERED Care 09/17/19 16:58 Active Notify MD of + Sepsis Screen NOW Care 09/17/19 16:58 Active Notify Physician As Ordered Care 09/17/19 16:58 Active Saline Loc NOW Care 09/17/19 15:57 Active NPO Diet 09/17/19 15:57 Active CHEST-1 VIEW [RAD] Stat Exams 09/17/19 16:[address] HEAD W/O CONTRAST [CT] Stat Exams 09/17/19 17:15 Completed BLOOD CULTURE [BLDCUL] Stat Lab 09/17/19 18:38 Ordered CBC WITH DIFF [HEME] Stat Lab 09/17/19 18:20 Completed CK PROFILE [SP CHEM] Stat Lab 09/17/19 18:20 Received COMPREHENSIVE METABOLIC PANEL [CHEM] Stat Lab 09/17/19 18:20 Received LACTATE, PLASMA [CHEM] Lab 09/17/19 18:20 Received LACTATE, PLASMA [CHEM] Lab 09/17/19 20:00 Uncollected LACTATE, PLASMA [CHEM] Lab 09/17/19 23:00 Uncollected LIPASE [CHEM] Stat Lab 09/17/19 18:20 Received PROTIME WITH INR [COAG] Stat Lab 09/17/19 18:20 Received PTT [COAG] Stat Lab 09/17/19 18:20 Received Stool [C DIFF TOXIN] [STOOL] Stat Lab 09/17/19 16:42 Completed TROPONIN T Stat Lab 09/17/19 18:20 Received URINALYSIS [URINALYSIS] Stat Lab 09/17/19 16:41 Completed URINE CULTURE [RM] Routine Lab 09/17/19 16:41 Received URINE DRUG SCREEN Routine Lab 09/17/19 16:41 Completed Abd Pain/OB <20 weeks Stat Oth 09/17/19 15:57 Ordered Oxygen Device Stat Oth 09/17/19 16:58 Active Result Diagrams: 09/18/19 10:35 09/18/19 10:35 - REASSESSMENT Reassessment #2 Time Reassessed: 21:37 Status: unchanged (seen awake but groaning. will admit. Case discussed with Dr Ortega) - XRAY 1 XRAY Study: Chest ( EXAM: CHEST-1 VIEW HISTORY: asp pn TECHNIQUE: Single view COMPARISON: 02/23/2018 FINDINGS: The lungs are well expanded. The heart is not enlarged. The vessels are distended. There are no infiltrates. No effusion identified. IMPRESSION: Pulmonary edema or pneumonia) - CT/MRI 1 CT Study: Head ( EXAM: CT HEAD W/O CONTRAST HISTORY: ams TECHNIQUE: CT head without contrast COMPARISON: 02/22/2018 FINDINGS: No parenchymal hemorrhage. No epidural or subdural hematoma. No subarachnoid hemorrhage. Mild atrophy with mild chronic microvascular ischemic changes. No mass identified on this noncontrasted exam. No hydrocephalus. No sinus opacification. IMPRESSION: 1.No hemorrhage 2.Mild atrophy with chronic microvascular ischemic changes This exam was performed using automated exposure control, adjustment of mA or kV according to patient size, and/or use of iterative reconstruction technique. Electronically signed by Mukesh Adam 09/17/2019 5:46 PM) 2 CT Study: Abdomen ( EXAM: CT ABDOMEN/PELVIS W/O CONTRAST HISTORY: abd pain TECHNIQUE: CT abdomen and pelvis without contrast COMPARISON: 01/06/2018 FINDINGS: There are small bilateral pleural effusions and there is pulmonary edema. The gallbladder has been removed. No focal hepatic abnormality identified on this noncontrasted exam. Normal spleen. No inflammation about the pancreas. Normal adrenal glands. The right kidney is atrophic. No renal stones or hydronephrosis. Prominent atherosclerosis. No aortic aneurysm. There is thickening to the wall of the proximal sigmoid colon. There are multiple scattered diverticula in this location. There is adjacent inflammatory changes. No free air. No abscess. No bowel obstruction. Normal appendix. There is a Lai catheter within the urinary bladder. The uterus has been removed. Small amount of free fluid in the pelvis. Mild to moderate scoliosis. IMPRESSION: 1.Sigmoid diverticulitis 2.Small pleural effusions with pulmonary edema 3.Atrophic right kidney 4.Hysterectomy This exam was performed using automated exposure control, adjustment of mA or kV according to patient size, and/or use of iterative reconstruction technique.) - CONSULTS/PCP/HOSPITALIST Notification #1 *Consult/PCP/Hospitalist*: Dr Ortega Time Discussed: 21:30 Consult Disposition: Admit ( Case discussed with Dr Ortega) Departure - Departure Date of Disposition Decision: 09/17/19 Time of Disposition Decision: 21:30 DIAGNOSIS: Sigmoid diverticulitis, Pleural effusion Pulmonary edema Qualifiers: Chronicity: acute Qualified Code(s): J81.0 - Acute pulmonary edema Disposition: ADMITTED INPATIENT 09 Certified Medical Emergency: Emergent Condition: Fair - Critical Care Note This patient required my direct & personal management of CC.: No Attestation - Physician/ JENNIFFER Attestation Patient care was provided by Advanced Practice Provider:: No The physician spent face to face time with patient:: Yes Advanced Practice Provider documentation review:: Supervising physician onsite and consulted in the evaluation and care of this patient. The physician did have a face to face encounter with the patient.
[2019-09-17] MEDS ORDERED: SODIUM CHLORIDE IV ONE (18:52)
[2019-09-17 19:07] LABS: ALB/GLOB RATIO 1.6; CALCIUM 8.8 mg/dL (8.8-10.2); CREATININE 1.3 mg/dL (0.5-0.9); POTASSIUM 4.6 mmol/L (3.5-5.1); TOTAL BILIRUBIN 0.62 mg/dL (0.20-1.00); TOTAL PROTEIN 6.5 g/dL (6.3-8.3)
[2019-09-17] MEDS ORDERED: DUONEB (A & A) INH ONE (19:48)
--- NOTE | 2019-09-17 20:17 | Diag Imaging Result Doc PS360 ---
EXAM: CT ABDOMEN/PELVIS W/O CONTRAST HISTORY: abd pain TECHNIQUE: CT abdomen and pelvis without contrast COMPARISON: 01/06/2018 FINDINGS: There are small bilateral pleural effusions and there is pulmonary edema. The gallbladder has been removed. No focal hepatic abnormality identified on this noncontrasted exam. Normal spleen. No inflammation about the pancreas. Normal adrenal glands. The right kidney is atrophic. No renal stones or hydronephrosis. Prominent atherosclerosis. No aortic aneurysm. There is thickening to the wall of the proximal sigmoid colon. There are multiple scattered diverticula in this location. There is adjacent inflammatory changes. No free air. No abscess. No bowel obstruction. Normal appendix. There is a Lai catheter within the urinary bladder. The uterus has been removed. Small amount of free fluid in the pelvis. Mild to moderate scoliosis. IMPRESSION: 1.Sigmoid diverticulitis 2.Small pleural effusions with pulmonary edema 3.Atrophic right kidney 4.Hysterectomy This exam was performed using automated exposure control, adjustment of mA or kV according to patient size, and/or use of iterative reconstruction technique. Electronically signed by Mukesh Adam 09/17/2019 8:14 PM
[2019-09-17] MEDS ORDERED: VANCOMYCIN 1 GM/NS 1 GM/250 ML IVPB IV ONE (21:02)
[2019-09-17] MEDS ORDERED: ZOSYN 4.5 GM in NS 100 ML IV ONE (21:38)
[2019-09-18 04:28] LABS: CALCIUM 7.8 mg/dL (8.8-10.2); CREATININE 1.2 mg/dL (0.5-0.9); POTASSIUM 3.9 mmol/L (3.5-5.1)
[2019-09-18] MEDS ORDERED: LASIX IV SCH (04:45)
[2019-09-18] MEDS ORDERED: DUONEB (A & A) INH PRN (04:49)
[2019-09-18] MEDS: PROTONIX IV SCH (05:09)
[2019-09-18] MEDS: ZOSYN 3.375 GM in NS 50 ML IV SCH ×5 (05:09→23:36)
[2019-09-18] MEDS: SYNTHROID PO SCH (06:00)
[2019-09-18] MEDS: LANOXIN PO SCH (09:36)
[2019-09-18] MEDS: TOPROL XL PO SCH (09:36)
[2019-09-18] MEDS: TYLENOL PO PRN ×2 (09:38→16:42)
--- NOTE | 2019-09-18 09:51 | EKG Report ---
Test Performed on : 09/18/2019 06:03:19 AM Test Reason : Elevated Troponin, CHF Blood Pressure : / mmHG Vent. Rate : 090 BPM Atrial Rate : 090 BPM P-R Int : 134 ms QRS Dur : 088 ms QT Int : 402 ms P-R-T Axes : 057 025 048 degrees QTc Int : 491 ms Normal sinus rhythm. Prolonged QT Abnormal ECG When compared with ECG of 18-SEP-2019 02:13, (Unconfirmed) No significant change was found Confirmed by Alcon ROCA, P.J.M ([id number]) on 09/19/2019 1:10:58 PM
--- NOTE | 2019-09-18 09:55 | EKG Report ---
Test Performed on : 09/18/2019 02:13:53 AM Test Reason : Elevated Troponin Blood Pressure : / mmHG Vent. Rate : 086 BPM Atrial Rate : 086 BPM P-R Int : 146 ms QRS Dur : 090 ms QT Int : 396 ms P-R-T Axes : 040 014 027 degrees QTc Int : 473 ms Normal sinus rhythm. Normal ECG When compared with ECG of 23-FEB-2018 10:15, Non-specific change in ST segment in Anterior leads QT has lengthened Unconfirmed Result
--- NOTE | 2019-09-18 10:15 | Diag Imaging Result Doc PS360 ---
EXAM: CHEST-PORTABLE - 09/18/2019 HISTORY: Pulmonary Edema TECHNIQUE: Portable chest COMPARISON: 09/17/2019 FINDINGS: Heart size appears borderline enlarged and stable. There is been interval decrease in vascular congestion and interstitial edema. There are some residual vascular congestion. There is subsegmental atelectasis at the left base. There is a tiny left pleural effusion. There is no dense consolidation or pneumothorax identified. IMPRESSION: Decrease in pulmonary edema compared to prior. Electronically signed by Dontae Carmichael 09/18/2019 10:13 AM
[2019-09-18 11:05] LABS: BASO# 0.02 X1000 (0.0-0.2); BASO% 0.2 % (0.0-0.8); EOS# 0.11 X1000 (0.0-0.7); EOS% 0.9 % (0.0-10.0); HEMATOCRIT 41.4 % (37.0-47.0); HEMOGLOBIN 13.1 g/dL (12.0-16.0); IMM GRAN# 0.04 X1000 (0.0-0.04); IMM GRAN% 0.3 % (0.0-0.5); LYMPH# 0.98 X1000 (1.2-3.4); LYMPH% 8.3 % (20.5-51.1); MCH 28.4 PG (27-31); MCHC 31.6 g/dL (33-37); MCV 89.8 FL (81-99); MONO# 0.93 X1000 (0.11-0.59); MONO% 7.9 % (1.7-9.3); MPV 10.6 FL (7.4-10.4); NEUT# 9.67 X1000 (1.4-6.5); NEUT% 82.4 % (42.2-75.2); PLT 222 X1000 (130-400); RBC 4.61 XMIL (4.2-5.4); RDW 13.4 % (11.5-14.5); WBC 11.75 X1000 (4.8-10.8)
[2019-09-18 11:12] LABS: CALCIUM 7.9 mg/dL (8.8-10.2); CREATININE 1.2 mg/dL (0.5-0.9); POTASSIUM 3.4 mmol/L (3.5-5.1)
[2019-09-18] MEDS: ZOFRAN IV PRN (11:45)
--- NOTE | 2019-09-18 12:26 | CARDIOLOGY CONSULTATION ---
DATE: 09/18/2019 CONSULTATION REQUESTED BY: [facility]ist [facility]. REASON FOR CONSULTATION: Presumably congestive heart failure. HISTORY OF PRESENT ILLNESS: Ms. Marshall is a 74-year-old female that according to her was in her usual state of health up until . Yesterday, the patient developed abdominal discomfort. She reported to her feeling ill. Apparently she had a few loose watery stools at home as well as vomiting a couple of times. She was brought to the emergency room at about 6:30 p.m. and at that time, they did a number of studies including blood work that showed a pro BNP level of 17,630. BUN was 25, creatinine 1.3. White count was 12416. Chest x-ray done initially was reported as showing pulmonary edema or pneumonia. Subsequent chest x-ray done today says decrease in pulmonary edema compared to prior. A CT of the abdomen and pelvis showed sigmoid diverticulitis, small pleural effusions with pulmonary edema, atrophic right kidney and status post hysterectomy. Her troponin levels have been checked twice, first 0.187 and next time 0.284. She denies having chest pain as such. She has no prior history of coronary disease. According to her , there has been no recent changes in her health status. The patient is really unable to put her thoughts together to explain what is going. PAST MEDICAL HISTORY: Positive for hypertension. She has hyperlipidemia, hypothyroidism. She had arthritis. She had acid reflux. PAST SURGICAL HISTORY: She has had a cholecystectomy, tubal ligation, total knee replacement. SOCIAL HISTORY: She has been to her for 55 years. They have 4 children. She follows with Dr. Gonzalez who is her primary doctor. She does not have a educational aid. She quit smoking 30 years ago. Not a drinker. FAMILY HISTORY: Noncontributory. REVIEW OF SYSTEMS: She had a previous admission to the hospital in January 2014 with pneumonia. Interestingly, at that time, she presented with diarrhea also and altered mental status. She developed paroxysmal atrial fibrillation at that time. Then in February 2018, she was admitted with a syncopal episode. There was no definitive diagnosis made. There was a question of digoxin overdose. The patient does not follow with any educational aid. All other review of systems is noncontributory but according to the , the patient's functional capacity has not declined much since 2018. She does not have to walk with a walker. She has generally good balance. No recent episode of GI distress. Her current symptoms are new for her. She cannot contribute with any further data. She says her mind is foggy. HOME MEDICATIONS: At the time of this admission included clonidine 0.1 mg every 6 hours as needed, digoxin 0.125 mg daily, gabapentin 600 three times a day, hydrocodone twice a day, Synthroid 50 mcg daily, metoprolol succinate 100 daily, Xarelto 15 mg in the morning, Requip 1 mg at bedtime, Crestor 20 mg at bedtime, sertraline 100 daily, Zanaflex 4 mg twice a day. ALLERGIES: She has no allergies. PHYSICAL EXAMINATION: Vital signs: Blood pressure 160/79, temperature 97 degrees, pulse 88, respirations 18. General: She is awake, however she appears to be very lethargic, acutely ill. HEENT: Unremarkable. Chest: Relatively clear lungs bilaterally. Heart: Sounds are regular rhythmic. I do not hear a gallop or murmur. Abdomen: Shows hyperactive bowel sounds. It is diffusely tender. I do not feel any hepatomegaly. Extremities: Showed no edema. Pulses are diminished. Neurological: She is lethargic. She follows some commands. IMPRESSION: 1. Patient presenting with what appears to be acute gastroenteritis or gastroenterocolitis. She appears to be dehydrated. 2. Acute renal dysfunction. 3. Question of heart failure, systolic vs diastolic versus noncardiogenic pulmonary edema. 4. Possible pneumonia. 5. History of hypertension. 6. History of hypothyroidism. 7. History of chronic pain. 8. History of paroxysmal atrial fibrillation. 9. Elevated troponin, question of non ST ND? 10 . atrophic right kidney. RECOMMENDATION: At this time, we will continue to trend her cardiac enzymes. I would suggest to give her gentle hydration. Probably a assembler knife should be summoned in the case to render an opinion. Her CT scan of the abdomen shows that she has only 1 functional kidney. We may need to be vigilant for the development of acute renal dysfunction on her. We will follow her as needed. cc: Javon Johnson MD MTDD
--- NOTE | 2019-09-18 13:06 | PROGRESS NOTE ---
DATE: 09/18/2019 SUBJECTIVE: This patient is lying in bed. She is complaining of abdominal pain. No nausea, no vomiting. Apparently, she had an episode of vomiting yesterday and also diarrhea, we have a CT scan of the abdomen and pelvis today that showed sigmoid diverticulitis, small pleural effusion with pulmonary edema, atrophic right kidney and hysterectomy. It looks like she has been having this kind of problem before, we have a previous CT scan of the chest from 12/21/2016 that also showed pulmonary edema with some pleural effusion and abdomen and pelvis CT scan done on 01/14/2018 that showed questionable mild colitis or diverticulitis. OBJECTIVE: Vital Signs: Temperature 98 degrees, pulse 64, respiratory rate 17, blood pressure 159/66, oxygen saturation 99 on 4 L of nasal cannula. HEENT: Head normocephalic, no trauma, PERRLA. Neck: Supple. No JVD. No masses. Central trachea. Chest: Clear to auscultation. Some decrease of breath sounds at the bases with some crepitus. Abdomen: Soft, generalized tenderness to palpation, mildly distended. Positive bowel sounds. Extremities: No edema, no clubbing, no cyanosis. Neurological: The patient is alert, she is oriented x3. No focal deficits. LABORATORY: WBC 11.7, hemoglobin 41.4, platelet 222,000, sodium 135, potassium 3.4, chloride 100, bicarbonate 21, BUN 22, creatinine 1.2, glucose 106, calcium 7.9, proBNP 35,000. ASSESSMENT AND PLAN: 1. Abdominal pain due to acute diverticulitis, this patient has been placed on antibiotics and actually the WBC is trending down, from 19.3 to 11.7, she also has some pleural effusion and apparently she has been having pleural effusion before as demonstrated by previous CT scan, but clinically she seems to be a little bit dehydrated, so I will go ahead and stop the IV Lasix. I do not see any diuretics at home. We have requested a new echocardiogram and I will give her a little bit of fluids. I will start with normal saline at 50 mL/hour. I will increase it over the course or decrease it depending on the echocardiogram. 2. History of recurrent C. difficile colitis, we did a new toxin and is negative. We will monitor. 3. Hypertension, stable. We will put this patient back on her home medications. 4. History of atrial fibrillation, rate controlled. Continue with same management, Cardiology on board. 5. We need to rule out CHF. She does have some pulmonary edema and pulmonary vascular congestion, on top of that her proBNP is elevated and previous echocardiogram showed a normal ejection fraction, but she has some pulmonary hypertension and possible diastolic dysfunction. I will wait for a new echocardiogram result and Cardiology's recommendations. 6. Chronic kidney disease, continue with same management. I will put her on fluids. cc: Deni Anderson MD
[2019-09-18] MEDS: NS 1,000 ML IV SCH (14:22)
[2019-09-18] MEDS: MORPHINE IV PRN ×3 (14:31→23:41)
[2019-09-18] MEDS: XARELTO PO SCH (16:30)
[2019-09-18] MEDS ORDERED: MORPHINE IV ONE (16:33)
--- NOTE | 2019-09-18 17:02 | ECHO REPORT ---
ORDER DATE: 09/18/2019 INTERPRETING PHYSICIAN: Dr. Javon Johnson. REQUESTING PHYSICIAN: TANYA Monroe. CLINICAL INDICATIONS: A 74-year-old female with CHF, positive troponin, pulmonary edema. M-MODE MEASUREMENTS: Left ventricle end diastole: 4.6 cm. Left ventricle end systole: 3.5 cm. Posterior wall: 0.8 cm. Interventricular septum: 1.2 cm. Left atrium: 3.6 cm. Aortic root: 3.1 cm. SUMMARY OF 2-DIMENSIONAL IMAGING: The study was difficult because the patient was not cooperative. 1. The basal segments of the left ventricle showed normal to possibly heightened contractility whereas the mid to apical segments showed impaired contractility. That suggests a picture of stress related cardiomyopathy. The apical inferior as well as the apical anterior portion was definitely hypokinetic and so is the distal lateral posterior segment. 2. The ejection fraction is somewhere in the range of 45% to 50%. 3. The aortic valve shows sclerosis of the cusps without definite stenosis. Color flow mapping unremarkable. 4. Mitral valve shows mild degree of regurgitation. 5. Pulse wave Doppler of mitral inflow shows "normal" E/A ratio. The ratio is 1.3. 6. Tissue Doppler of septal and lateral mitral annulus averages 6 cm per second. 7. The E/E prime ratio is significantly elevated, suggesting elevation of left atrial pressure. 8. The pulmonic valve is unremarkable. 9. Tricuspid valve shows mild to moderate degree of regurgitation. 10.Pulmonary pressure appears to be in the neighborhood of 42-47 mmHg. 11.The left atrium is probably at the upper limits of normal. 12.The right-sided chambers appear to be normal. 13.There is physiologic pericardial fluid. Clinical correlation is recommended. cc: Javon Johnson MD [facility]
--- NOTE | 2019-09-18 17:08 | HISTORY AND PHYSICAL ---
PRIMARY CARE PROVIDER: Dr. Gonzalez DATE AND TIME: 09/18/2019 at 0115. CHIEF COMPLAINT: Abdominal pain, nausea, vomiting, diarrhea and weakness. HISTORY OF PRESENT ILLNESS: Ms Marshall is a 74-year-old female with a past medical history most notable for paroxysmal atrial fibrillation on anticoagulation with Xarelto, hypertension, hyperlipidemia, hypothyroidism, depression, fibromyalgia, chronic pain syndrome, and a history of recurrent C difficile colitis in the past. The patient's family reports that the patient began complaining of abdominal pain, nausea, vomiting, diarrhea. Per her family, they report that she had quite a few episodes of nausea and vomiting, reporting that she was vomiting a bile like substance. They denied her having any bloody emesis or coffee-ground appearing emesis. They also report that she had multiple episodes of diarrhea as well. They also deny her having any hematochezia or melena. When I did ask the patient about her abdominal pain, she stated that she was not have any abdominal pain except for when she started cramping when she would have diarrhea. This is when her abdomen would hurt, though otherwise she is not having any pain. I believe it was her daughter and granddaughter at the bedside. Her granddaughter did report that last week that many of them did have possibly a stomach virus. They all had nausea, vomiting, and diarrhea, though they tried not to visit Ms. Marshall while they were sick. Though other than this, they deny her being around anyone that was sick with similar symptoms or any recent travel. They deny her being sick recently or recently taking any antibiotics for anything either. Her daughter and granddaughter did state that the patient had been feeling well. She has been up cooking all day the day before and had not had any sleep and this may be making her more tired than normal though they did not report her having any these type symptoms yesterday. The patient is very drowsy, was sleeping upon my arrival to the room, though was easily arousable with verbal stimulation. Once awoken it did take her a little bit to do could become at herself though once she did, so she was alert and oriented to person, place, time, and situation. She was able to answer questions appropriately and follow commands. Though, she did drift back off to sleep and would have to be woken back up, but as previously described once awoken again, she was able to answer questions and follow commands. She denied having any chest pain at present or at all. She denied having any shortness of breath or cough. She denied having any dysuria or urinary frequency. She also denied having any swelling in extremities. The patient does have some chronic pain. She has had previous back surgery and neck surgery and does have fibromyalgia. She does take pain medications for this though other than this, she is not reporting any new pain at this time. She does not report any known fever, body aches, or chills either. Her family reports that she does have a history of paroxysmal atrial fibrillation, though to their knowledge she does not have any known coronary artery disease or ever been told she has congestive heart failure. She, to their knowledge has never had to take any type of diuretics either. Upon arrival to the ER, the patient was noted to be awake and alert though was noted to be weak in appearance. Initial vital signs were temperature 99.2 degrees, heart rate 97, respirations were 30, blood pressure 188 systolic, oxygen saturation was noted to be 90% on room air. Though most recent vital signs have improved. She has a heart rate 83, respirations 21, blood pressure is 154/68 with a map 95, and oxygen saturation is 97% on nasal cannula at 2 L. She was noted to have leukocytosis with a white blood cell count of 19,380. BUN was 25, creatinine was 1.3 with a GFR of 40. It does appear the patient usually has a baseline creatinine of around 0.9 to 1. CK was normal at 56, though troponin was 0.187. ProBNP was 17,630. Urinalysis did not show any signs of infection. Urine drug screen was negative. They did perform a CT of the head without contrast given that she was weak and was noted to be somewhat lethargic at times. It did not show any hemorrhage. There was some mild atrophy with chronic microvascular ischemic changes. They did perform a chest x-ray as well, which did show pulmonary edema or pneumonia. Did note that the vessels were distended though there were no infiltrates and no effusions identified. Given her symptoms of nausea, vomiting, diarrhea as well as leukocytosis and history of colitis, they did perform a CT abdomen and pelvis without contrast which did show sigmoid diverticulitis, small pleural effusions with pulmonary edema as well as an atrophic right kidney. Blood cultures were drawn. They did give her antibiotics of vancomycin and Zosyn in the ER. She also did receive 2 L normal saline bolus. The patient does not have any peripheral edema. She did not have any overt JVD noted. She did have fine crackles noted in bilateral full rankin. She is not reporting any shortness of breath. She denied having any cough or chest pain. We may give her a dose of Lasix this to see if this will help with her pulmonary edema possibly. She will be placed in PDC unit for close monitoring. REVIEW OF SYSTEMS: A 14 point review of systems was conducted with the patient. All were negative except for pertinent positives mentioned above HPI. PAST MEDICAL HISTORY: 1. Recurrent C difficile colitis. 2. Hypertension. 3. Dyslipidemia. 4. Hypothyroidism. 5. Osteoporosis. 6. Chronic pain syndrome. 7. Depression. 8. Fibromyalgia. 9. Paroxysmal atrial fibrillation. PAST SURGICAL HISTORY: 1. Back surgery. 2. Neck surgery. 3. Cholecystectomy. 4. Hysterectomy. SOCIAL HISTORY: The patient is a former smoker. She did smoke for many years, though quit approximately 30 years ago. There is no known alcohol or illicit drug use. Her daughter and granddaughter were present at bedside during my examination. FAMILY HISTORY: Positive for thyroid disease though it was also noted. Her daughter is her daughter and granddaughter reported that her mother had a history of stroke and that her father had a history of passing away secondary from intestinal blockage at age 93. ALLERGIES: Patient has no known allergies. HOME MEDICATIONS: 1. Clonidine 0.1 mg tablet p.o. q.6 hours p.r.n. for hypertension. 2. Digoxin 125 mcg p.o. daily. 3. Gabapentin 600 mg p.o. t.i.d. 4. Worthing 10 mg tablet 1 tablet p.o. q.6 hours p.r.n. for pain. 5. Levothyroxine 50 mcg p.o. daily. 6. Toprol-XL 100 mg p.o. daily. 7. Xarelto 15 mg p.o. q.a.m. 8. Requip 1 mg p.o. at bedtime. 9. Crestor 20 mg p.o. at bedtime. 10. Sertraline 100 mg p.o. daily. 11. Zanaflex 4 mg p.o. b.i.d. IMAGIN. EKG showed normal sinus rhythm at a rate of 86 with a QTc of 473. When compared to previous EKG from February 2019 there does not appear to be any significant changes. The previous EKG was noted to have sinus bradycardia. At this time her rate is maintaining in the 80s. 2. Chest x-ray did show the vessels were distended. There were no infiltrates and no effusion identified. Though, radiology impression did note pulmonary edema or pneumonia. 3. Head CT without contrast showed no hemorrhage. There is mild atrophy with chronic microvascular ischemic changes. 4. CT of the abdomen and pelvis without contrast did show sigmoid diverticulitis, small pleural effusions with pulmonary edema and atrophic right kidney and findings of a hysterectomy. PHYSICAL EXAMINATION: VITAL SIGNS: Temperature 98.5 degrees, heart rate 86, respirations 21, blood pressure is 158/92, oxygen saturation is 97% on nasal cannula at 2 L. GENERAL: Ms. Marshall is an elderly 74-year-old female. She was resting in the ER stretcher. She was resting with her eyes closed upon my arrival to the room, though she was easily arousable with verbal stimulation. It did take her a few seconds to wake up though once awoken she was able to answer questions appropriately and follow commands. She was alert and oriented to person, place, time, and situation. Though she did appear to be drowsy, did drift back off to sleep easily and would have to be woken back up to answer questions. She does appear to not feel well as well as have some generalized weakness as well. HEENT: Head is atraumatic, normocephalic. Pupils are equal, round, reactive to light, were 3 mm bilaterally and brisk. Oral mucosa was slightly dry. Oropharynx is clear. NECK: Supple trachea midline. No JVD noted. CARDIOVASCULAR: Patient has S1-S2 present. No murmurs, gallops, rubs appreciated with a regular rate and rhythm. PULMONARY: Patient has symmetrical chest expansion bilaterally. Lung sounds did have fine crackles noted in bilateral full lung rankin. ABDOMEN: Soft does not appear to be distended. She did not report any tenderness upon palpation. Bowel sounds were present in all 4 quadrants, were normoactive. EXTREMITIES: No cyanosis or edema noted. Pulse, motor, and sensory were intact in all extremities. Radial and pedal pulses were 2+ bilaterally. INTEGUMENTARY: The patient's skin color is slightly pale though is dry and intact. NEUROLOGICAL: Patient is as previously mentioned drowsy. She was resting with her eyes closed upon my arrival to the room, though was easily arousable with verbal stimulation. Once she is awoken, she is alert and oriented to person, place, time, and situation. She was able to answer questions and follow commands. She is able to move all extremities. There were no other focal neurological deficits noted at this time. ASSESSMENT AND PLAN: 1. Diverticulitis. We did order stool studies, which included his Clostridium difficile toxin, which was negative. We have placed her with antibiotic coverage of Zosyn. Blood cultures have been obtained as well. We are awaiting the results of her other stool studies to come back. We did place a consult with Gastroenterology with Dr. Hayden. We will await their evaluation and further recommendations for management as well. 2. Nausea, vomiting, diarrhea, may be likely secondary to her diverticulitis. Since arriving to the emergency room and receiving antiemetics, she has not had any further episodes according to the family. We will continue treatment as mentioned above in #1. We have added p.r.n. antiemetics. 3. Leukocytosis may be secondary to her diverticulitis, though could be somewhat reactive as well. She has had reported multiple episodes of nausea, vomiting, diarrhea. Her chest x-ray did mention pulmonary edema or pneumonia though on her CT abdomen pelvis, it was noted in the lung bases that there was pulmonary edema present. I do think at this time that this is pulmonary edema and not likely pneumonia. We will repeat a chest x-ray in the morning. Her urine did not show any signs of infection. We will continue to rule out any other sources of infection as well. We will continue to follow. 4. Pulmonary edema. The patient does not have any reported history of congestive heart failure. She has not had ever take any known diuretics. She does have hypertension and history of paroxysmal atrial fibrillation. She does not have any peripheral edema or jugular venous distention, though does have pulmonary edema or pneumonia noted on chest x- ray and pulmonary edema noted on the CT. She does have fine crackles noted in bilateral full lung rankin. She did receive 2 L normal saline bolus in the emergency room as well as her proBNP was elevated at 17,630. We will try her with a dose of Lasix to see how she responds to this. We will continue to monitor her fluid volume status closely. We will do strict intake and output and daily weights. She does have a Lai catheter in place at this time, so we will be able to monitor urine output closely as well. We have placed a consult with Cardiology as well for evaluation of possible heart failure and we have ordered an echocardiogram. Repeat EKG in the morning as well as a series of cardiac enzymes. We will continue to monitor closely. The patient's troponins were elevated, though she is not reporting any chest pain. 5. Paroxysmal atrial fibrillation. We will continue her digoxin and metoprolol as well as her Xarelto. We have ordered a digoxin level as well. She will be on the PVC unit for close monitoring. She will be on continuous cardiac telemetry with frequent vital signs. 6. Hypertension. As mentioned above we have continued the patient's metoprolol. Her blood pressures are okay at this time. She has not been hypotensive. She was actually a little hypertensive upon arrival though her blood pressures have improved. We will continue to follow. 7. Deep vein thrombosis prophylaxis provided with previously mentioned Xarelto 15 mg p.o. with supper daily. She has been placed in the PVC unit for close monitoring. She will be on continuous cardiac telemetry. We will do q.4 hours vital signs and neurological checks. We will continue with incentive spirometry, aspiration precautions. We will also order her to have DuoNeb treatments if needed. Further orders and recommendations pending hospital course, diagnostic studies, and physician evaluation. Dictated by TANYA Monroe for Quintin Ortega MD I have performed a face to face diagnostic evaluation. Labs/ Xray- reviewed, Exam- Chest- rales, CV- regular, Abdomen- mild tenderness. A/P- Abdominal Pain- Admit, NPO, IV ABX, Pain control. Dr Ortega cc: Quintin Ortega MD [facility]
[2019-09-18] MEDS ORDERED: B & O 15A SUPP PR PRN (19:03)
[2019-09-18] MEDS: CRESTOR PO SCH (20:40)
[2019-09-18] MEDS ORDERED: MELATONIN PO ONE (20:53)
[2019-09-19] MEDS: MORPHINE IV PRN ×2 (03:03→08:26)
[2019-09-19] MEDS: PROTONIX IV SCH (04:01)
[2019-09-19] MEDS: ZOSYN 3.375 GM in NS 50 ML IV SCH ×4 (04:01→21:47)
[2019-09-19] MEDS: SYNTHROID PO SCH (06:03)
[2019-09-19 06:57] LABS: CALCIUM 7.6 mg/dL (8.8-10.2); CREATININE 1.2 mg/dL (0.5-0.9); POTASSIUM 3.4 mmol/L (3.5-5.1)
[2019-09-19] MEDS ORDERED: KLOR-CON PO ONE (07:51)
[2019-09-19] MEDS: TOPROL XL PO SCH (08:15)
[2019-09-19] MEDS ORDERED: CARDIZEM 100 MG/NS 100 MG/100 ML IVPB IV SCH (08:15)
[2019-09-19] MEDS: LANOXIN PO SCH (08:15)
[2019-09-19] MEDS ORDERED: CARDIZEM IV ONE (08:34)
[2019-09-19] MEDS: NS 1,000 ML IV SCH (08:40)
--- NOTE | 2019-09-19 08:40 | Diag Imaging Result Doc PS360 ---
EXAM: CHEST-PORTABLE HISTORY: SOB TECHNIQUE: Single view COMPARISON: 09/18/2019 FINDINGS: Poor inspiratory effort. Heart is borderline mildly prominent. There are mild increased interstitial markings in the lungs. No pleural effusions identified. No consolidation. IMPRESSION: Stable chest. Mild pulmonary edema remains. Electronically signed by Mukesh Adam 09/19/2019 8:38 AM
--- NOTE | 2019-09-19 08:48 | EKG Report ---
Test Performed on : 09/19/2019 07:46:56 AM Test Reason : non ST AZ/CHF/ Blood Pressure : / mmHG Vent. Rate : 141 BPM Atrial Rate : 075 BPM P-R Int : 000 ms QRS Dur : 084 ms QT Int : 344 ms P-R-T Axes : 000 035 -34 degrees QTc Int : 526 ms Critical Test Result: High HR , STEMI Atrial fibrillation. with rapid ventricular response. ST elevation, consider anterior injury or acute infarct ACUTE AZ / STEMI Abnormal ECG When compared with ECG of 18-SEP-2019 06:03, (Unconfirmed) Atrial fibrillation. has replaced Sinus rhythm. Vent. rate has increased BY 51 BPM T wave inversion now evident in Inferior leads T wave inversion now evident in Anterolateral leads Confirmed by Devon ROCA, Chirag ([id number]) on 09/21/2019 8:52:46 AM
--- NOTE | 2019-09-19 09:20 | PROGRESS NOTE ---
DATE: 09/19/2019 SUBJECTIVE: The patient is lying in bed. She is complaining of palpitation. Apparently, she had a bowel movement yesterday night, and a little bit today in the morning, but as per the patient, the diarrhea has slowed down. CT scan of the abdomen and pelvis showed sigmoid diverticulitis, small pleural effusion and pulmonary edema, atrophic right kidney, and hysterectomy. Today, this patient is in atrial fibrillation with RVR. Her troponins are slightly elevated. Echocardiogram showed an ejection fraction of 45% to 50% with basal segments of the left ventricle showed normal- to-possible heightened contractility, whereas the [id number] segment showed impaired contractility, and this suggests a picture of possible stress-related cardiomyopathy. The apical inferior as well as the apical anterior portion was definitely hypokinetic, and so is the distal lateral posterior segment. Pulmonary arterial pressure is around 40 to 47 mmHg. OBJECTIVE: Vital Signs: Temperature 98 degrees, pulse 152, respiratory rate 16, blood pressure 147/82, oxygen saturation 99 on 3 L of nasal cannula. HEENT: Head normocephalic. No trauma. PERRLA. Neck: Supple. No JVD. No masses. Central trachea. Chest: Clear to auscultation. Some decreased breath sounds at the bases with some crepitus. Cardiovascular: Irregularly irregular rate and rhythm. Tachycardic. Abdomen: Soft. Some generalized tenderness to palpation. Mildly distended, but positive bowel sounds. Extremities: No edema, no clubbing, no cyanosis. Neurological: The patient is alert and oriented x3. No focal deficits. LABORATORY DATA: Sodium 139, potassium 3.4, chloride 104, bicarbonate 22, BUN 19, creatinine 1.2, glucose 90, calcium 7.6. ASSESSMENT AND PLAN: 1. Abdominal pain and diarrhea due to acute diverticulitis. This patient has been placed on antibiotics, and actually the white blood cell count went down from 19.3 to 11.7. We will continue with the same management. Case has been discussed with Gastroenterology briefly a couple days ago, and Dr. Hayden stated that the patient just needs to be treated with antibiotics, and he will not do any kind of procedure due to her acute diverticulitis, so for now, just antibiotics. Her abdominal pain is better though. Also, I have started this patient on normal saline yesterday, but at a really gentle amount, around 50 mL/h because she looked dehydrated for me. Chest x-ray today looks stable. 2. History of recurrent Clostridium difficile colitis. We did a new toxin, and it is negative. We will monitor. Her diarrhea is getting better as well. 3. Atrial fibrillation with rapid ventricular response. Cardiology Department on board. They have placed this patient on diltiazem drip. She is also on digoxin and metoprolol. Her cardiac enzymes are slightly elevated. An echocardiogram showed an ejection fraction of 45% to 50% with some impairment as well of the contractility. This, as per the report, can be related to stress cardiomyopathy/Takotsubo cardiomyopathy. We will continue to monitor this patient closely. 4. Congestive heart failure, systolic and possible diastolic, with pulmonary hypertension. Continue with the same management for now. 5. Chronic kidney disease. Continue with the same management. Kidney function seems to be at baseline. 6. Hypokalemia. I will replace the potassium. CRITICAL CARE TIME: 35 minutes. cc: Deni Anderson MD
--- NOTE | 2019-09-19 10:40 | CARDIOLOGY PROGRESS NOTE ---
DATE: 09/19/2019 CHIEF COMPLAINT: Abdominal pain, diarrhea, weakness. SUBJECTIVE: Ms. Marshall developed atrial fibrillation with rapid response early this morning. She said that she experienced some chest heaviness. It has improved now. I have ordered over the phone initiation of Cardizem IV. Her EKG done this morning at 7:46 a.m. shows atrial fibrillation with rate 141 beats per minute. There is a diffuse repolarization abnormality in anterior and inferior leads. This is really nonspecific. Her potassium is 3.4 mEq/L. The patient is not having chest pain as I walk into the room at 8:30 a.m. OBJECTIVE: The patient's vital signs this morning show pulse is going fast at 135 per minute, temperature 98 degrees, respirations 22, blood pressure is 147/82. She is awake, appears to be acutely and chronically ill. HEENT: No jugular venous distention. Chest: Diminished breath sounds at bases. Heart sounds are rapid, irregular. Abdomen is diffusely tender. Bowel sounds are still hyperactive. Extremities showed no edema. DIAGNOSTIC DATA: Her C-reactive protein was checked twice, 132.58 mg/L and then at 145.64 mg/L, indicating intense inflammation. Troponin levels have been checked 5 times, 0.187, 0.284, 0.269, 0.243, and 0.279 nanograms per mL. Her ProBNP level was greater than 35,000 yesterday. BUN was 19, creatinine 1.2 mg/dL. White cell count yesterday was 11,750. IMPRESSION: 1. The patient presented with an acute abdominal complaint with pain, diarrhea, watery, nausea and vomiting. 2. Acute congestive heart failure. This appears to be systolic and probably diastolic. Review of echocardiogram shows hypokinesis of the anteroapical as well as the inferoapical segment. There is a question of possible stress related cardiomyopathy. 3. The patient has history of hypertension and hyperlipidemia. 4. Chronic pain syndrome. 5. Acute renal dysfunction with evidence on CT of an atrophic right kidney. RECOMMENDATIONS: At this time, we will institute IV Cardizem by protocol to control the patient's rate. We will continue with digoxin and beta blockers. The inspector of weights and measures apparently was consulted over the phone. He has not formally done a consultation. We will continue to follow the patient. At this time, the patient is really not in need of invasive cardiac evaluation or further cardiac testing. We will make sure that she is on her usual home medications. Continue to follow her. cc: Javon Johnson MD
[2019-09-19] MEDS: TYLENOL PO PRN (10:55)
[2019-09-19] MEDS: LOPRESSOR PO SCH ×3 (10:56→20:50)
[2019-09-19] MEDS: LANOXIN IV SCH ×2 (10:59→15:21)
[2019-09-19] MEDS: XARELTO PO SCH (17:05)
[2019-09-19] MEDS: ZOFRAN IV PRN (17:36)
[2019-09-19] MEDS: CRESTOR PO SCH (20:51)
[2019-09-20] MEDS: ZOFRAN IV PRN ×2 (02:30→22:55)
[2019-09-20] MEDS: MORPHINE IV PRN ×5 (02:30→22:54)
[2019-09-20] MEDS: LOPRESSOR PO SCH ×4 (03:03→20:57)
[2019-09-20] MEDS ORDERED: APRESOLINE IV ONE (03:44)
[2019-09-20] MEDS: PROTONIX IV SCH (04:14)
[2019-09-20] MEDS: ZOSYN 3.375 GM in NS 50 ML IV SCH ×4 (04:14→22:55)
[2019-09-20] MEDS: NS 1,000 ML IV SCH (04:14)
[2019-09-20] MEDS: SYNTHROID PO SCH (06:07)
[2019-09-20 06:22] LABS: BASO# 0.01 X1000 (0.0-0.2); BASO% 0.1 % (0.0-0.8); EOS# 0.35 X1000 (0.0-0.7); EOS% 4.5 % (0.0-10.0); HEMATOCRIT 41.2 % (37.0-47.0); HEMOGLOBIN 12.7 g/dL (12.0-16.0); LYMPH# 0.85 X1000 (1.2-3.4); LYMPH% 10.8 % (20.5-51.1); MCH 28.7 PG (27-31); MCHC 30.8 g/dL (33-37); MONO# 0.69 X1000 (0.11-0.59); MONO% 8.8 % (1.7-9.3); NEUT# 5.96 X1000 (1.4-6.5); NEUT% 75.8 % (42.2-75.2); PLT 206 X1000 (130-400); RBC 4.43 XMIL (4.2-5.4); WBC 7.86 X1000 (4.8-10.8)
[2019-09-20 06:47] LABS: ALB/GLOB RATIO 0.9; ALBUMIN 2.5 g/dL (3.5-5.0); CALCIUM 8.1 mg/dL (8.8-10.2); MAGNESIUM 2.2 mg/dL (1.5-2.7); POTASSIUM 4.4 mmol/L (3.5-5.1); TOTAL BILIRUBIN 0.38 mg/dL (0.20-1.00); TOTAL PROTEIN 5.3 g/dL (6.3-8.3)
--- NOTE | 2019-09-20 07:26 | EKG Report ---
Test Performed on : 09/20/2019 06:52:46 AM Test Reason : paroxysmal atrial fibrillation Blood Pressure : / mmHG Vent. Rate : 059 BPM Atrial Rate : 059 BPM P-R Int : 154 ms QRS Dur : 086 ms QT Int : 596 ms P-R-T Axes : 035 010 096 degrees QTc Int : 590 ms Critical Test Result: Long QTc Sinus bradycardia. with sinus arrhythmia. ST & T wave abnormality, consider anterior ischemia Prolonged QT Abnormal ECG When compared with ECG of 19-SEP-2019 07:46, (Unconfirmed) Sinus rhythm. has replaced Atrial fibrillation. Vent. rate has decreased BY [address] no longer depressed in Inferior leads Nonspecific T wave abnormality, worse in Lateral leads Confirmed by Devon ROCA, Chirag ([id number]) on 09/21/2019 8:56:28 AM
--- NOTE | 2019-09-20 07:38 | Diag Imaging Result Doc PS360 ---
EXAM: CHEST-PORTABLE INDICATION: dyspnea TECHNIQUE: One view COMPARISON: 09/19/2019 FINDINGS: Mild increased interstitial markings are approximately stable. Some or all of this may be chronic. No new consolidation is identified. Cardiac silhouette is stable. IMPRESSION: Stable chest. Electronically signed by Zeb Whitney 09/20/2019 7:36 AM
[2019-09-20] MEDS: NITROGLYCERIN TOP SCH ×3 (08:19→20:57)
[2019-09-20] MEDS: LANOXIN PO SCH (08:19)
[2019-09-20] MEDS: NORVASC PO SCH ×2 (08:20→20:57)
--- NOTE | 2019-09-20 08:53 | CARDIOLOGY PROGRESS NOTE ---
DATE: 09/20/2019 CHIEF COMPLAINT: Abdominal pain, diarrhea, weakness, dehydration, irregular heartbeat. SUBJECTIVE: Ms. Marshall is still feeling weak and unwell. Of note, her rhythm has changed back to sinus. She is not having chest pain. OBJECTIVE: Blood pressure is 175/52, pulse 60, temperature 98.3, respirations 19. She is awake, alert, appears to be chronically ill. HEENT is unremarkable. Chest sounds clear to auscultation and percussion. Heart sounds are regular and rhythmic. I do not hear gallop or murmur. Her abdomen is nontender. Soft. No masses. No hepatomegaly. Bowel sounds diminished. Extremities showed no obvious edema. Neurologic: Follows commands. Moves all 4 extremities. She appears to be weak. DIAGNOSTIC DATA: Sodium is 141, potassium 4.4, BUN is 15, creatinine 1.0, that has improved. IMPRESSION: 1. The patient presented with abdominal distress, diarrhea, dehydration. 2. Paroxysmal atrial fibrillation. 3. Abnormal electrocardiogram raising concern for non-ST myocardial infarction. 4. Chronic pain. 5. History of hypertension. 6. Diastolic plus systolic heart failure, acute on chronic. RECOMMENDATIONS: At this time, the patient has recovered sinus rhythm. Her EKG this morning shows deep T wave inversion in precordial leads V1 through V4. This could represent either ischemia of the anteroapical segment of left ventricle versus the evolution of takotsubo. At this time, I have put her on beta blockers 25 mg every 6 hours. We will add some nitroglycerin paste to her regimen to try to control her blood pressure a little better. We will add amlodipine. We will see how she does. I am going to request a resting gated myocardial perfusion study to take a look at the perfusion of the anteroapical segment of the left ventricle. Typically with takotsubo, there is no significant perfusion abnormality; however, if this is indeed ischemic, we will see a big defect, and that will help us to make a decision as to whether or not to proceed with heart catheterization as soon as her GI and possibly infectious situation stabilizes. cc: Javon Johnson MD
--- NOTE | 2019-09-20 09:36 | PROGRESS NOTE ---
DATE: 09/20/2019 SUBJECTIVE: This patient is lying in bed. She is complaining of generalized weakness, but her abdominal pain is better, and the last time she had diarrhea was yesterday. Her white blood cell count is normal today, so I believe the infectious process is getting better. She was admitted due to diverticulitis, but also she started having atrial fibrillation with rapid ventricular response, and Cardiology Department is on board. Ejection fraction though is around 45% to 50% with some impairment of contractility that probably is related to stress cardiomyopathy/Takotsubo cardiomyopathy. Today, this patient will have part of the stress test done. Cardiology Department on board. OBJECTIVE: Vital Signs: Temperature 97.9 degrees, pulse 60, respiratory rate 18, blood pressure 188/59, oxygen saturation 95% on 2 L of nasal cannula. HEENT: Head normocephalic. No trauma. PERRLA. Neck: Supple. Probably mild JVD, central trachea. Chest: Clear to auscultation. Decreased breath sounds at the bases, with some crepitus. Cardiovascular: RRR. Abdomen: Soft. Mild generalized tenderness to palpation. She describes this as a soreness, mostly at the level of the left lower quadrant. It is mildly distended, but positive bowel sounds. Extremities: No edema, no clubbing, no cyanosis. Neurological: The patient is alert. She is oriented x3. No focal deficits. LABORATORY DATA: WBC 7.8, hemoglobin 12.7, hematocrit 41.2, platelets 206,000. Sodium 141, potassium 4.4, chloride 107, bicarbonate 23, BUN 15, creatinine 1, glucose 81, calcium 8.1, magnesium 2.2. ASSESSMENT AND PLAN: 1. Abdominal pain and diarrhea due to acute diverticulitis. White blood cell count is normal today, and the pain is better, as well as the diarrhea. We will continue to monitor. I do believe this is getting better. 2. Atrial fibrillation with rapid ventricular response. Cardiology Department on board. She was placed on a diltiazem drip. She is also on digoxin and metoprolol. 3. Elevated cardiac enzymes. Echocardiogram showed an ejection fraction of 45% to 50% with some impairment of the contractility, and the report states that probably this can be related to a stress cardiomyopathy/Takotsubo cardiomyopathy, and a stress test has been requested today. Cardiology Department following this patient. 4. Congestive heart failure, systolic and possible diastolic, as above with pulmonary hypertension. Continue with the same management for now. Cardiology on board. 5. Chronic kidney disease. This is her baseline. 6. Hypokalemia, resolved. Overall, her diarrhea seems to be better, as well as her abdominal pain. White blood cell count is normal today. During the course of her hospitalization, she started having atrial fibrillation with rapid ventricular response, and the troponins were slightly elevated. Cardiology Department was consulted, and she was started on diltiazem drip. Today, she is going to get, I believe, the resting part of the stress test. Cardiology Department on board. cc: Deni Anderson MD
[2019-09-20] MEDS: XARELTO PO SCH (16:51)
[2019-09-20] MEDS: CRESTOR PO SCH (20:57)
[2019-09-21] MEDS: NITROGLYCERIN TOP SCH ×4 (02:20→21:05)
[2019-09-21] MEDS: LOPRESSOR PO SCH ×4 (04:08→21:05)
[2019-09-21] MEDS: NS 1,000 ML IV SCH (04:53)
[2019-09-21] MEDS: PROTONIX IV SCH (04:56)
[2019-09-21] MEDS: SODIUM CHLORIDE 0.9% INJ SCH (04:56)
[2019-09-21] MEDS: ZOSYN 3.375 GM in NS 50 ML IV SCH ×4 (04:56→21:05)
[2019-09-21] MEDS: MORPHINE IV PRN ×4 (06:05→19:51)
[2019-09-21] MEDS: SYNTHROID PO SCH (06:05)
[2019-09-21 06:07] LABS: BASO# 0.02 X1000 (0.0-0.2); BASO% 0.3 % (0.0-0.8); EOS# 0.37 X1000 (0.0-0.7); EOS% 6.3 % (0.0-10.0); HEMATOCRIT 37.6 % (37.0-47.0); HEMOGLOBIN 11.8 g/dL (12.0-16.0); IMM GRAN# 0.02 X1000 (0.0-0.04); IMM GRAN% 0.3 % (0.0-0.5); LYMPH# 1.21 X1000 (1.2-3.4); LYMPH% 20.6 % (20.5-51.1); MCH 28.7 PG (27-31); MCHC 31.4 g/dL (33-37); MCV 91.5 FL (81-99); MONO# 0.57 X1000 (0.11-0.59); MONO% 9.7 % (1.7-9.3); MPV 10.4 FL (7.4-10.4); NEUT# 3.69 X1000 (1.4-6.5); NEUT% 62.8 % (42.2-75.2); PLT 214 X1000 (130-400); RBC 4.11 XMIL (4.2-5.4); RDW 12.7 % (11.5-14.5); WBC 5.88 X1000 (4.8-10.8)
--- NOTE | 2019-09-21 06:37 | Diag Imaging Result Doc PS360 ---
CHEST-PORTABLE - 09/21/2019 INDICATION: dyspnea COMPARISON: 09/20/2019 FINDINGS: Stable low lung volumes. No new infiltrates. Heart size is grossly normal. IMPRESSION: No change from prior. Electronically signed by Alberto David 09/21/2019 6:34 AM
[2019-09-21 06:40] LABS: AGAP 11; ALBUMIN 2.6 g/dL (3.5-5.0); ALKALINE PHOSPHATASE 134 U/L (32-104); BUN 11 mg/dL (8-22); CALCIUM 7.8 mg/dL (8.8-10.2); CHLORIDE 110 mmol/L (98-107); COSMO 284; CREATININE 0.8 mg/dL (0.5-0.9); ESTIMATED GFR > 60; GLUCOSE 99 mg/dL (70-104); GOT 26 U/L (10-30); GPT 16 U/L (10-36); MAGNESIUM 2.1 mg/dL (1.5-2.7); POTASSIUM 3.7 mmol/L (3.5-5.1); SODIUM 143 mmol/L (136-145); TCO2 22 mmol/L (25-35); TOTAL BILIRUBIN 0.29 mg/dL (0.20-1.00); TOTAL PROTEIN 5.1 g/dL (6.3-8.3)
--- NOTE | 2019-09-21 07:27 | EKG Report ---
Test Performed on : 09/21/2019 06:50:58 AM Test Reason : paroxysmal atrial fibrillation Blood Pressure : / mmHG Vent. Rate : 059 BPM Atrial Rate : 059 BPM P-R Int : 156 ms QRS Dur : 090 ms QT Int : 506 ms P-R-T Axes : 033 001 022 degrees QTc Int : [address] & T wave abnormality, consider anterior ischemia Prolonged QT Abnormal ECG When compared with ECG of 20-SEP-2019 06:52, (Unconfirmed) QT has shortened Confirmed by Devon ROCA, Chirag ([id number]) on 09/21/2019 9:03:00 AM
--- NOTE | 2019-09-21 07:57 | CARDIOLOGY PROGRESS NOTE ---
DATE: 09/21/2019 CHIEF COMPLAINT: Abdominal pain, shortness of breath. SUBJECTIVE: Mrs. Marshall is feeling stronger. She is still not having good appetite. She has not gotten out of bed. OBJECTIVE: Vital signs: Blood pressure is still running high. Her blood pressure today is 189/72, temperature 98.1, pulse 64, respirations 15. We have put her on Nitro- Paste and amlodipine in addition to beta-blockers. General: She is awake, alert, in no distress. HEENT: Unremarkable. Chest: Sounds relatively clear to auscultation and percussion. Heart: Sounds regular and rhythmic. No obvious gallop or murmur. Abdomen: Nontender, bowel sounds are normal. Extremities: Showed no edema. Pulses are somewhat diminished. Chest x-ray shows stable lung volumes, no new infiltrates. BLOOD WORK: Sodium 143, potassium 3.7, BUN 11, creatinine 0.8. Her proBNP has dropped to 9669. Her C-reactive protein has also dropped to 25.61 mg/L. Albumin is down to 2.6 g. Her white cell count is 5888, hemoglobin 11.8. IMPRESSION: 1. Patient who developed an acute gastrointestinal disorder with diarrhea. That seems to have improved. 2. Paroxysmal atrial fibrillation that is better also. 3. Abnormal electrocardiogram with elevated troponin levels. Question of non-ST myocardial infarction versus a stress-related cardiomyopathy. 4. Obesity. 5. Hypertension. 6. Diastolic plus systolic heart failure, acute. 7. History of atrophic kidney. RECOMMENDATIONS: At this time, the patient seems to be getting better. Her perfusion resting study from yesterday suggests that there is no resting ischemia of the anterior apical segment of the left ventricle, which would speak against having a subtotal occlusion of the LAD and its main branches. Her EKG on the other hand is very impressive with a deep T wave abnormality in the precordial leads V1 through V4. I believe this is what we would expect on a case of takotsubo cardiomyopathy. At this time, we will try to get her out of bed, will call Physical Therapy, will give her albumin plus Lasix because she may be a little bit volume overloaded. We will replace potassium. We will see how she does. I would strongly recommend to obtain a left heart catheterization in the next 48 hours for definition of her coronary anatomy and then decide if we can send her home safely or refer her for coronary intervention. At this time, the patient is chest pain free. cc: Javon Johnson MD MTDD
[2019-09-21] MEDS: NORVASC PO SCH ×2 (08:49→21:05)
[2019-09-21] MEDS: LANOXIN PO SCH (08:49)
[2019-09-21] MEDS: K-PHOS PO SCH ×2 (09:27→21:05)
--- NOTE | 2019-09-21 14:51 | PROGRESS NOTE ---
DATE: 09/21/2019 SUBJECTIVE: Patient reports feeling fine. Denies any abdominal pain at this time. OBJECTIVE: Vital Signs: Temperature 98.4, heart rate 65, respiratory rate 16, blood pressure 204/79, O2 saturation 94% on 2 L nasal cannula. General examination: This is a 74-year-old female lying in bed, in no acute distress. Cardiovascular: S1, S2 heard. No murmurs, gallops, or rubs. Regular rate and rhythm. Respiratory: Decreased breath sounds globally, mostly in the bases with some crackles as well. Abdomen: Soft. Mild generalized tenderness to palpation today, mostly in the left lower quadrant. Bowel sounds present. No organomegaly. Extremities: No clubbing, cyanosis, or edema. Peripheral pulses present in both legs. Neurological: Patient is alert and oriented x3. Moves 4 extremities. LABORATORY DATA: CBC is okay. BMP show chloride 110, phosphorus 2.0. ProBNP is 9,669. ASSESSMENT AND PLAN: 1. Acute diverticulitis. White cell count is back to normal. We will continue with current antibiotic management. This condition is getting better. 2. Atrial fibrillation with rapid ventricular response. Patient is on digoxin, metoprolol. Apparently Cardizem drip has been stopped. Will continue to monitor. 3. Takotsubo cardiomyopathy. That is the diagnosis from cardiology. They are suggesting to do a left heart catheterization. We will see what it shows. We will follow recommendations from them. 4. Congestive heart failure, systolic, possible diastolic. We will continue with the same management. 5. Uncontrolled hypertension. Blood pressure is around 200 today. We will adjust the doses of some of her medications. 6. Chronic kidney disease. I think she is at her baseline. We will continue to monitor. 7. As we mentioned before, Cardiology recommends to do a left heart catheterization to see how this patient is doing with this takotsubo cardiomyopathy. cc: Stanislaw Hollis MD
[2019-09-21] MEDS ORDERED: ALBUMIN 25% IV ONE (15:36)
[2019-09-21] MEDS ORDERED: POTASSIUM CHLORIDE 20% LIQUID PO ONE (15:37)
[2019-09-21] MEDS ORDERED: LASIX IV ONE (15:37)
[2019-09-21] MEDS: XARELTO PO SCH (16:06)
[2019-09-21] MEDS: CRESTOR PO SCH (21:05)
[2019-09-22] MEDS: NS 1,000 ML IV SCH ×2 (03:38→03:39)
[2019-09-22] MEDS: LOPRESSOR PO SCH ×5 (03:38→21:11)
[2019-09-22] MEDS: NITROGLYCERIN TOP SCH ×4 (03:38→21:10)
[2019-09-22] MEDS: ZOSYN 3.375 GM in NS 50 ML IV SCH ×4 (05:02→21:10)
[2019-09-22] MEDS: SYNTHROID PO SCH ×2 (05:02→07:34)
[2019-09-22] MEDS: SODIUM CHLORIDE 0.9% INJ SCH (05:41)
[2019-09-22] MEDS: PROTONIX IV SCH (05:41)
[2019-09-22 06:16] LABS: BASO# 0.02 X1000 (0.0-0.2); BASO% 0.2 % (0.0-0.8); HEMATOCRIT 43.1 % (37.0-47.0); HEMOGLOBIN 13.6 g/dL (12.0-16.0); IMM GRAN# 0.02 X1000 (0.0-0.04); IMM GRAN% 0.2 % (0.0-0.5); LYMPH# 1.21 X1000 (1.2-3.4); MCH 28.4 PG (27-31); MCHC 31.6 g/dL (33-37); MONO# 0.79 X1000 (0.11-0.59); MONO% 9.8 % (1.7-9.3); MPV 10.4 FL (7.4-10.4); NEUT% 69.8 % (42.2-75.2); PLT 235 X1000 (130-400); RBC 4.79 XMIL (4.2-5.4); RDW 12.6 % (11.5-14.5); WBC 8.04 X1000 (4.8-10.8)
[2019-09-22 06:43] LABS: AGAP 13; BUN 9 mg/dL (8-22); CALCIUM 8.4 mg/dL (8.8-10.2); CHLORIDE 103 mmol/L (98-107); COSMO 284; CREATININE 0.8 mg/dL (0.5-0.9); ESTIMATED GFR > 60; GLUCOSE 105 mg/dL (70-104); PHOSPHORUS 2.5 mg/dL (2.7-4.5); POTASSIUM 3.1 mmol/L (3.5-5.1); SODIUM 143 mmol/L (136-145); TCO2 27 mmol/L (25-35)
[2019-09-22] MEDS ORDERED: POTASSIUM CHLORIDE 20% LIQUID PO ONE (07:28)
[2019-09-22] MEDS ORDERED: CARDIZEM IV ONE (07:48)
[2019-09-22] MEDS ORDERED: CARDIZEM 100 MG/NS 100 MG/100 ML IVPB IV SCH (08:00)
[2019-09-22] MEDS ORDERED: POTASSIUM CHLORIDE 60 MEQ in NS 500 ML IV ONE (08:00)
[2019-09-22] MEDS: K-PHOS PO SCH ×2 (08:07→21:11)
[2019-09-22] MEDS: NORVASC PO SCH ×2 (08:07→21:11)
[2019-09-22] MEDS: LANOXIN PO SCH (08:07)
--- NOTE | 2019-09-22 08:08 | EKG Report ---
Test Performed on : 09/22/2019 06:49:15 AM Test Reason : paroxysmal atrial fibrillation Blood Pressure : / mmHG Vent. Rate : 128 BPM Atrial Rate : 288 BPM P-R Int : 000 ms QRS Dur : 088 ms QT Int : 354 ms P-R-T Axes : 000 055 245 degrees QTc Int : 516 ms Atrial fibrillation. with rapid ventricular response. ST & T wave abnormality, consider inferior ischemia ST & T wave abnormality, consider anterolateral ischemia Abnormal ECG When compared with ECG of 21-SEP-2019 06:50, Significant changes have occurred Confirmed by Devon ROCA, Chirag ([id number]) on 09/22/2019 8:54:27 AM
[2019-09-22] MEDS: COZAAR PO SCH ×2 (09:41→21:11)
--- NOTE | 2019-09-22 09:52 | EKG Report ---
Test Performed on : 09/22/2019 09:40:33 AM Test Reason : afib vs SR Blood Pressure : / mmHG Vent. Rate : 053 BPM Atrial Rate : 053 BPM P-R Int : 138 ms QRS Dur : 088 ms QT Int : 456 ms P-R-T Axes : -20 033 106 degrees QTc Int : 427 ms Sinus bradycardia. T wave abnormality, consider anterolateral ischemia Abnormal ECG When compared with ECG of 22-SEP-2019 06:49, Sinus rhythm. has replaced Atrial fibrillation. Vent. rate has decreased BY [address] no longer depressed in Inferior leads T wave inversion no longer evident in Inferior leads T wave inversion more evident in Lateral leads Confirmed by Devon ROCA, Chirag ([id number]) on 09/23/2019 8:31:43 AM
--- NOTE | 2019-09-22 10:24 | CARDIOLOGY PROGRESS NOTE ---
DATE: 09/22/2019 CHIEF COMPLAINT: Abdominal pain, irregular heartbeat. SUBJECTIVE: Mrs. Marshall unfortunately has slid back into irregular rate and irregular rhythm today. She is atrial fibrillation with rapid response, rate is 128 beats per minute. She does not feel a whole lot different. OBJECTIVE: Blood pressure 154/84, temperature 98.2, respirations 16. She is awake, in no distress. HEENT: Unremarkable. Chest: Diminished breath sounds at bases. Heart: Sounds irregularly irregular. No murmur or gallop. Abdomen: Obese. Extremities: Showed no edema. Neurologic exam: Follows commands, moves all 4 extremities. BLOOD WORK: Sodium 143, potassium 3.1, BUN 9, creatinine 0.8. IMPRESSION: 1. Patient who presented with abdominal pain suspected diverticulitis, however, she had loose stools and appeared to have dehydration with acute renal dysfunction. 2. Paroxysmal atrial fibrillation. 3. Abnormal electrocardiogram with question of non-ST myocardial infarction and electrocardiogram evolution and echocardiographic suspicion for stress-related cardiomyopathy. 4. Hypokalemia. 5. Single kidney. RECOMMENDATIONS: At this time, we will put her on IV Cardizem again. We will try to maximize her beta blockade and see how she does over the next 24 hours. Ideally if this patient flips back into normal sinus rhythm, we will try to pursue heart catheterization tomorrow. Further advice will be forthcoming. cc: Javon Johnson MD
[2019-09-22] MEDS ORDERED: SODIUM PHOSPHATE 35 MMOL in NS 250 ML IV ONE (12:00)
--- NOTE | 2019-09-22 13:24 | PROGRESS NOTE ---
DATE: 09/22/2019 SUBJECTIVE: The patient reports no chest pain. No difficulty in breathing. No abdominal pain. OBJECTIVE: Vital Signs: Temperature 97.9 degrees, heart rate 106, respiratory rate 13, blood pressure 163/112, O2 saturation 94% on 2 L nasal cannula. General: This is a 74-year-old female lying in bed in no acute distress. Cardiovascular: S1, S2 heard. No murmurs, gallops or rubs. Regular rate and rhythm. Respiratory: Decreased breath sounds globally mostly in the bases with minimal crackles as well, but the patient is not using any accessory muscles or having work of breathing. Abdomen: Soft. Mild generalized tenderness to the palpation of the abdomen, but no signs of peritoneal irritation. Bowel sounds present. No organomegaly. Extremities: No clubbing, cyanosis, or edema. Peripheral pulses present in both legs. Neurological: The patient is alert and oriented x3. Moves all 4 extremities. LABORATORY DATA: CBC is okay. BMP reveals potassium 3.1, with calcium 8.4, and phosphorus 2.5. ASSESSMENT AND PLAN: 1. Acute diverticulitis. Clinically the patient is not having any abdominal pain. We will continue with current antibiotic management in this case it is Zosyn. We will continue with the same management. 2. Atrial fibrillation with rapid ventricular response. The patient is on metoprolol and digoxin. Cardizem drip has been stopped and we will continue to monitor. 3. Takotsubo cardiomyopathy. The patient has been evaluated by Cardiology and they recommend a left heart catheterization during the next 24 to 48 hours. There is no orders for a catheterization today, we will see when this is going to be done. 4. Uncontrolled hypertension. Blood pressure has been high, she is on amlodipine 5 mg p.o. twice daily and also metoprolol 50 mg p.o. 6 hours. I think at this point we will add losartan to her current treatment. 5. Diastolic congestive heart failure. We will continue with the same management. Clinically this patient is better with less crackles in both pulmonary bases. 6. Chronic kidney disease. I think the patient is at baseline. We will continue to monitor. 7. Disposition. We will follow the recommendations from Cardiology. cc: Stainslaw Hollis MD MTDD
[2019-09-22 15:13] LABS: MAGNESIUM 1.9 mg/dL (1.5-2.7); POTASSIUM 5.1 mmol/L (3.5-5.1)
[2019-09-22] MEDS: NORCO-10 PO PRN (15:16)
[2019-09-22] MEDS: XARELTO PO SCH (18:39)
[2019-09-22] MEDS: MORPHINE IV PRN (18:39)
[2019-09-22] MEDS: CRESTOR PO SCH (21:11)
[2019-09-23] MEDS: LOPRESSOR PO SCH ×3 (02:56→13:48)
[2019-09-23] MEDS: NITROGLYCERIN TOP SCH ×3 (02:56→13:48)
[2019-09-23] MEDS: ZOSYN 3.375 GM in NS 50 ML IV SCH ×4 (02:57→16:00)
[2019-09-23] MEDS: NS 1,000 ML IV SCH ×2 (03:03→19:07)
[2019-09-23 06:06] LABS: BASO# 0.03 X1000 (0.0-0.2); BASO% 0.4 % (0.0-0.8); EOS# 0.56 X1000 (0.0-0.7); EOS% 6.6 % (0.0-10.0); IMM GRAN# 0.03 X1000 (0.0-0.04); IMM GRAN% 0.4 % (0.0-0.5); LYMPH% 16.6 % (20.5-51.1); MCHC 30.8 g/dL (33-37); MCV 91.1 FL (81-99); MONO# 0.66 X1000 (0.11-0.59); MONO% 7.8 % (1.7-9.3); MPV 10.6 FL (7.4-10.4); NEUT# 5.75 X1000 (1.4-6.5); NEUT% 68.2 % (42.2-75.2); PLT 232 X1000 (130-400); RBC 4.28 XMIL (4.2-5.4); RDW 12.6 % (11.5-14.5); WBC 8.43 X1000 (4.8-10.8)
[2019-09-23] MEDS: SYNTHROID PO SCH (06:07)
[2019-09-23] MEDS: PROTONIX IV SCH (06:07)
[2019-09-23 06:28] LABS: AGAP 9; BUN 12 mg/dL (8-22); CALCIUM 8.1 mg/dL (8.8-10.2); CHLORIDE 106 mmol/L (98-107); COSMO 282; CREATININE 0.9 mg/dL (0.5-0.9); ESTIMATED GFR > 60; GLUCOSE 110 mg/dL (70-104); POTASSIUM 4.2 mmol/L (3.5-5.1); SODIUM 141 mmol/L (136-145); TCO2 26 mmol/L (25-35)
--- NOTE | 2019-09-23 07:45 | EKG Report ---
Test Performed on : 09/23/2019 07:35:20 AM Test Reason : non ST NC/Afib Blood Pressure : / mmHG Vent. Rate : 054 BPM Atrial Rate : 054 BPM P-R Int : 130 ms QRS Dur : 088 ms QT Int : 474 ms P-R-T Axes : 010 028 114 degrees QTc Int : 449 ms Sinus bradycardia. T wave abnormality, consider anterolateral ischemia Abnormal ECG When compared with ECG of 22-SEP-2019 09:40, (Unconfirmed) No significant change was found Confirmed by Devon ROCA, Chirag ([id number]) on 09/23/2019 8:40:26 AM
[2019-09-23] MEDS: K-PHOS PO SCH (08:41)
[2019-09-23] MEDS: NORVASC PO SCH (08:41)
[2019-09-23] MEDS: COZAAR PO SCH (08:41)
[2019-09-23] MEDS: LANOXIN PO SCH (08:45)
[2019-09-23] MEDS ORDERED: CALMOSEPTINE OINTMENT TOP PRN (09:55)
--- NOTE | 2019-09-23 10:19 | CARDIOLOGY PROGRESS NOTE ---
DATE: 09/23/2019 CHIEF COMPLAINT: Irregular heartbeat, abdominal pain, diarrhea, weakness. SUBJECTIVE: Mrs. Marshall is still feeling somewhat weak. She has converted from atrial fibrillation back into sinus rhythm. We put her on a high dose of beta-ludwig as well as IV Cardizem. Her electrolytes this morning, sodium is 141, potassium 4.2, BUN is 12, creatinine 0.9. is at the bedside. OBJECTIVE: Vital signs: Blood pressure is 184/82, temperature 98.5, pulse 67, respirations 14. General: Awake, in no distress. HEENT: Unremarkable. Chest: Clear to auscultation and percussion. Heart: Sounds regular and rhythmic. No gallop or murmur. Abdomen: Obese. Extremities: Showed no edema. Neurologic exam: Generally about the same. IMPRESSION: 1. Patient who presented with abdominal symptoms, diarrhea, nausea, vomiting. Suspected diverticulitis with acute gastroenteritis. This seems to have improved. 2. Acute renal dysfunction that has improved. 3. Paroxysmal atrial fibrillation that reoccurred yesterday. She is back in SR now. 4. Abnormal electrocardiogram with evolution suspicious for stress-related cardiomyopathy. 5. Question of non-ST myocardial infarction. RECOMMENDATIONS: At this time, I had a lengthy discussion with the and the patient. I explained to the , who seems to be in better position to understand what is going on, the benefits, risks, and complications of the procedure, the rationale for it. He is in agreement. The patient is also in agreement. We will setup a heart catheterization today to determine whether or not she indeed has severe coronary artery disease and then take appropriate steps prior to discharge. Further advice will be forthcoming. cc: Javon Johnson MD [facility]
[2019-09-23] MEDS ORDERED: HEPARIN 1000 UNITS/NS 2,000 UNIT/1,000 ML IV.SOLN ONE (11:37)
[2019-09-23] MEDS ORDERED: VERSED ONE (12:05)
[2019-09-23] MEDS ORDERED: DEMEROL ONE (12:05)
--- NOTE | 2019-09-23 12:18 | Diag Imaging Result Document ---
PROCEDURE NAME: MYOCARDIAL PERFU SCAN, REST - 09/20/2019 INDICATION: Acute coronary syndrome versus takotsubo cardiomyopathy. PROCEDURES PERFORMED: REST MYOCARDIAL PERFUSION FINDINGS: 1. No evidence of abnormal extracardiac uptake. 2. Rest perfusion imaging demonstrates a large size mild intensity defect involving the septum in the inferior wall. This could possibly be secondary to soft tissue attenuation. No other perfusion defects were noted. Again, this is extremely mild in intensity. No stress imaging performed. 3. Normal ejection fraction of 61%. The end-diastolic volume is 93, end systolic volume 37. Wall motion in the area of the defect appears to be intact. cc: MD Javon Rosas MD
[2019-09-23] MEDS ORDERED: LOPRESSOR ONE (12:29)
--- NOTE | 2019-09-23 13:04 | PROGRESS NOTE ---
DATE: 09/23/2019 SUBJECTIVE: Patient reports no chest pain. No abdominal pain. No nausea or vomiting. OBJECTIVE: Vital Signs: Temperature 98.5 degrees, heart rate 56, respiratory 14, blood pressure 134/82, and O2 saturation 97% on high flow nasal cannula. General: This is a 74-year-old female lying in bed in no acute distress. Cardiovascular: S1, S2 heard. No murmurs, gallops, or rubs. Regular rate and rhythm. Respiratory: Decreased breath sounds globally with minimal crackles as well. Patient is not using any accessory muscles or having work of breathing. Abdomen: Soft. Nontender to palpation. Bowel sounds present. No organomegaly. No signs of peritoneal irritation. Extremities: No clubbing, cyanosis, or edema. Peripheral pulses present in both legs. Neurological: Patient is alert and oriented x3. Moves 4 extremities. LABORATORY DATA: CBC unremarkable as well as BMP. ASSESSMENT AND PLAN: 1. Acute diverticulitis. Clinically, this patient is getting much better. There was almost no abdominal pain. Upon my examination, the patient continues to be on Zosyn. We will continue with the same management. 2. Atrial fibrillation with rapid ventricular response. Patient has been restarted on Cardizem drip, but now she is getting much better. Patient is on metoprolol and digoxin. We will continue with the same management. 3. Takotsubo cardiomyopathy. The patient is going to have left heart catheterization today. We will see what it shows. 4. Uncontrolled hypertension. Blood pressure is still high in the 180's even though we have increased the doses of amlodipine to 5 mg p.o. b.i.d., and also losartan 50 mg p.o. b.i.d. as well. Metoprolol also has been increased. We will continue to monitor. 5. Diastolic congestive heart failure. Clinically, patient is better. We will continue with same management. 6. Chronic kidney disease. Patient's creatinine is at her baseline. We will continue to monitor. 7. Disposition. We will continue to monitor this patient closely. We are following the lead from Cardiology. cc: Stanislaw Hollis MD MTDD
[2019-09-23] MEDS ORDERED: BLISTEX MEDICATED BERRY LIP BALM TOP PRN (13:56)
--- NOTE | 2019-09-23 14:06 | CARDIAC CATH REPORT ---
DATE: 09/23/2019 PROCEDURES: 1. Left heart catheterization. 2. Selective bilateral coronary arteriography. 3. Left ventriculography. 4. Opacification of the right femoral artery with deployment of 6 Irish Angio-Seal device. HISTORY: A 74-year-old female presented to the hospital with abdominal pain and diarrhea and then developed paroxysmal atrial fibrillation with very difficult to control hypertension, transient acute renal dysfunction. Her cardiac enzymes became positive and then her ECG started to change showing deep T wave inversion across the precordial leads raising concern for acute myocardial ischemia. A resting gated myocardial perfusion study showed no definite abnormalities however the echocardiogram initially showed anterior apical hypokinesis. After following the course in the hospital and because of the persistent deep T wave inversion across the precordial leads with vague discomfort and difficult to control hypertension was recommended to pursue left heart catheterization to define coronary anatomy and then decide on further therapy. Benefits, risks and complications were discussed. She understood and requested to proceed. 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 The right groin prepped and draped in sterile fashion, anesthetized with lidocaine 1%. A 6 Irish sheath was inserted into the right femoral artery by following the modified Seldinger technique. Using a 6 Irish left Migue 3.5 catheter, the left coronary artery was selectively opacified. Then using a 6 Irish right Migeu 4 and then 6 Irish right Migue 3.5 catheter, the right coronary artery was opacified. Then using a 6 Irish pigtail catheter and injecting 36 mL of Visipaque at 10 mL/second, we opacified the left ventricle. Then, all the catheters were removed, the sheath was flushed. Right femoral artery opacified then Angio-Seal device was deployed successfully. The patient tolerated the procedure well without complications. During the procedure, multiple doses of intraarterial nitroglycerin were given and also she received 5 mg of Lopressor IV. SUMMARY OF HEMODYNAMIC FINDINGS: Central aortic pressure was 204/67, thereafter 188/29, post LV gram 184/24. Final central aortic pressure 163/68. This indicates LV dysfunction. SUMMARY OF THE ANGIOGRAPHIC FINDINGS: 1. Left main coronary artery: The vessel shows some plaque in its most distal aspect. No more than 20%. The left main divides into LAD and circumflex. 2. Left anterior descending coronary artery: The vessel shows some minor irregularities, the proximal portion is about 20% to 25% stenosed. Then the LAD continues down the anterior portion of the left ventricle gives rise to several diagonal branches, a total of 5 small branches were noted. Several septal branches were noted and in the apical portion of the LAD divides into an apical diagonal and an apical septal branch. No significant lesion was noted in the LAD other than some irregularities no more than 20% to 25% in the mid section. 3. Circumflex: The circumflex is a nondominant vessel however has an ostial stenosis that is somewhat difficult to assess, it may be anywhere from 40% to 50%. It is calcified. The circumflex gives rise to a sinus sawyer branch then gives rise to a couple of tiny lateral vessels then gives rise to a good size obtuse marginal that has a 40% mid proximal stenosis. Then the terminal AV branch of the circumflex shows some 30% to 40% plaque. 4. Right coronary artery: The right coronary artery is a dominant system. It shows an ostial 95% stenosis. There was some dampening of pressure. The right coronary artery gives rise to right ventricular branches, it shows a severe 80% stenosis in the mid section and then gives rise to a posterior descending branch and a posterolateral vessel. There is a 95% stenosis at the ostium of what appears to be a terminal posterolateral branch. The posterolateral branch and the posterior descending branch appear to be potentially suitable for bypass grafting. LEFT VENTRICULOGRAM: Left ventriculogram in the 30 degree POSEY projection with caudal angulation shows preservation of left ventricular function, ejection fraction visually appears to be 55%. No definite wall motion abnormalities are noted. No mitral regurgitation. OPACIFICATION OF THE RIGHT FEMORAL ARTERY: There is diffuse atherosclerosis in the right femoral artery without any critical stenosis. SUMMARY: This study shows: 1. LV diastolic dysfunction. 2. Severe coronary artery disease involving the ostium of the right coronary artery 95%, question of 40% to 50% ostial circumflex stenosis with moderate disease in the obtuse marginal branch and mild plaque in the LAD and also severe stenosis at the ostium of the posterolateral branch of the right coronary artery. 3. Preserved left ventricular systolic function, ejection fraction 55%. 4. No aortic stenosis. No mitral regurgitation. 5. 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 RECOMMENDATIONS: We will continue to treat the patient medically. Her hypertension is difficult to optimize. We will consult [facility]. She may need opacification of the right renal artery because it could be stenotic. We will refer the patient to [facility] for possible coronary intervention versus coronary bypass surgery. The patient at this time is stable. Thank you for the opportunity to participate in her evaluation. cc: Javon Johnson MD
--- NOTE | 2019-09-23 15:09 | EKG Report ---
Test Performed on : 09/23/2019 2:12:29 PM Test Reason : s/p heart cath Blood Pressure : / mmHG Vent. Rate : 066 BPM Atrial Rate : 066 BPM P-R Int : 144 ms QRS Dur : 090 ms QT Int : 444 ms P-R-T Axes : 054 054 109 degrees QTc Int : 465 ms Normal sinus rhythm. T wave abnormality, consider anterior ischemia Abnormal ECG When compared with ECG of 23-SEP-2019 07:35, No significant change was found Confirmed by Devon ROCA, Chirag ([id number]) on 09/27/2019 8:21:33 AM
[2019-09-23] MEDS: XARELTO PO SCH (17:31)
[2019-09-23] MEDS: NORCO-10 PO PRN (17:31)
[2019-09-23 18:46] VITALS: BP 185/70
--- NOTE | 2019-09-24 07:48 | DISCHARGE SUMMARY ---
ADMISSION DATE: 09/18/2019 DISCHARGE DATE: 09/23/2019 DISCHARGE DIAGNOSIS: 1. Acute diverticulitis, improved. 2. Paroxysmal atrial fibrillation. 3. Diffuse coronary artery disease. 4. Hypertension. CONSULTATIONS: Dr. Johnson from Cardiology. PROCEDURES: 1. Head CT done on admission showed no hemorrhage and mild atrophy with chronic microvascular ischemic changes. 2. Abdomen and pelvis CT showed sigmoid diverticulitis with small pleural effusions with pulmonary edema, atrophic right kidney and hysterectomy. 3. Myocardial perfusion scan nuclear medicine showed normal ejection fraction of 61%. Rest perfusion imaging demonstrated a large size mild intensity defect involving the septum in the anterior wall. No other defects were noted. 4. Cardiac catheterization, performed by Dr. Johnson. Showed severe coronary artery disease involving the ostium of the right coronary artery 95%, preserved left ventricular systolic function with ejection fraction of 55%. Recommendation was to consult cardiovascular surgery for possible coronary artery bypass surgery. HOSPITAL COURSE: In brief, this is a 74-year-old female who was admitted to the hospital for abdominal pain. In the ER, we found out that this patient has diverticulitis. She was started on IV antibiotics. Clinically, this patient was feeling fine. A few days after admission, patient's paroxysmal atrial fibrillation starting getting worse, requiring Cardizem drip. We checked troponins and those started getting higher. We consulted Cardiology and then decided to do Lexiscan with the findings as above. We suspect takotsubo cardiomyopathy. In that regard, left heart catheterization was performed with results as above. Cardiology recommends to transfer this patient to [facility] for Cardiovascular Surgery consultation. The patient is going to be transferred over there in stable condition. cc: Stanislaw Hollis MD [facility]
== END 2019-09-23 20:24 | disposition short-term general hospital (02) | DRG 871 ==
LOC: ED 15:28 → 2N 09-18 03:03 → SUATTDRO 09-18 03:03
PROVIDERS: ATTEND Internal Medicine